=== PATIENT | female | born 1970 | race Caucasian/White ===

== ENCOUNTER → 2018-09-12 10:47 | Outpatient (CLI) | payer OTHER, SELFPAY ==
--- NOTE | 2018-09-12 | DI.MG.S_ITS ---
BILATERAL DIGITAL SCREENING MAMMOGRAM 3D/2D WITH CAD: 09/12/2018 CLINICAL: Routine screening. Comparison is made to exams dated: 03/21/2014 mammogram, 04/04/2012 mammogram, and 03/22/2011 mammogram - [facility]. The tissue of both breasts is heterogeneously dense. This may lower the sensitivity of mammography. Current study was also evaluated with a Computer Aided Detection (CAD) system. No significant masses, calcifications, or other findings are seen in either breast. There has been no significant interval change. IMPRESSION: NEGATIVE There is no mammographic evidence of malignancy. A 1 year screening mammogram is recommended. This exam was interpreted at Station ID: [id number]. NOTE: For mammograms, a report in lay terms will be sent to the patient. Approximately 15% of breast malignancies will not be visualized mammographically. In the management of a palpable breast mass, a negative mammogram must not discourage biopsy of a clinically suspicious lesion. Electronically Signed By: Uma chaves/pina:09/12/2018 17:15:51 letter sent: Normal Exam ACR BI-RADS Category 1: Negative 3341F
== END ==
PROVIDERS: Family Provider Family Medicine; PCP Family Medicine; Visit Provider Family Medicine
DX: Z12.31 Encounter for screening mammogram for malignant neoplasm of breast (principal)
CPT/HCPCS: 77063; 77067

== ENCOUNTER 2020-01-17 11:14 | Emergency (ER) | payer OTHER, SELFPAY ==
[2020-01-17 11:18] VITALS: BP 138/75; PULSE 74; RESP 14; TEMP 37; O2SAT 99
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
[2020-01-17 11:48] LABS: Alanine Aminotransferase 16 IU/L (<35)
[2020-01-17 12:57] LABS: HIV 1 & 2 Ab/Ag 4th Gen Combo NEGATIVE (NEGATIVE); Hep C Virus Ab w/Reflex Quant NEGATIVE s/c (NEGATIVE)
[2020-01-18 03:36] LABS: Hepatitis B Surf Ab Qualitativ Reactive (.)
== END 2020-01-17 11:56 | disposition home or self-care (01) ==
PROVIDERS: Emergency Provider Nurse Practitioner Family; Family Provider Family Medicine; PCP Family Medicine
DX: Z77.21 Contact with and (suspected) exposure to potentially hazardous body fluids (principal); Y99.0 Civilian activity done for income or pay
CPT/HCPCS: 36415; 84460; 86706; 86803; 87389; 99283

== ENCOUNTER → 2020-06-19 12:47 | Outpatient (CLI) | payer OTHER, SELFPAY ==
[2020-06-19] MEDS: COVID-19 VACC(MODERNA-1)/PF 100 MCG/0.5 ML VIAL IM (12:51)
== END ==
PROVIDERS: Family Provider Family Medicine; PCP Family Medicine; Visit Provider Internal Medicine
DX: Z23 Encounter for immunization (principal)
CPT/HCPCS: 0011A; 91301

== ENCOUNTER → 2020-07-17 12:43 | Outpatient (CLI) | payer OTHER, SELFPAY ==
[2020-07-17] MEDS: COVID-19 VACC #2, MRNA(MOD) 100 MCG/0.5 ML VIAL IM (12:50)
== END ==
PROVIDERS: Family Provider Family Medicine; PCP Family Medicine; Visit Provider Internal Medicine
DX: Z23 Encounter for immunization (principal)
CPT/HCPCS: 0012A; 91301

== ENCOUNTER → 2021-04-16 09:17 | Outpatient (CLI) | payer OTHER, SELFPAY ==
[2021-04-16] MEDS: COVID-19 VACC #3, MRNA(MOD) 50 MCG/0.25 ML VIAL IM (09:24)
== END ==
PROVIDERS: Family Provider Family Medicine; PCP Family Medicine; Visit Provider Internal Medicine
DX: Z23 Encounter for immunization (principal)
CPT/HCPCS: 0013A; 91301

== ENCOUNTER → 2021-05-05 14:48 | Outpatient (CLI) | payer OTHER, SELFPAY ==
--- NOTE | 2021-05-05 14:49 | DI.MG.S_ITS ---
BILATERAL DIGITAL SCREENING MAMMOGRAM 3D/2D WITH CAD: 05/05/2021 CLINICAL: Routine screening. Comparison is made to exams dated: 09/12/2018 mammogram and 03/21/2014 mammogram - [facility]. The tissue of both breasts is heterogeneously dense. This may lower the sensitivity of mammography. Current study was also evaluated with a Computer Aided Detection (CAD) system. No significant masses, calcifications, or other findings are seen in either breast. There has been no significant interval change. IMPRESSION: NEGATIVE There is no mammographic evidence of malignancy. A 1 year screening mammogram is recommended. This exam was interpreted at Station ID: [id number]. NOTE: For mammograms, a report in lay terms will be sent to the patient. Approximately 15% of breast malignancies will not be visualized mammographically. In the management of a palpable breast mass, a negative mammogram must not discourage biopsy of a clinically suspicious lesion. Electronically Signed By: Mohsen jaramillo/pina:05/05/2021 15:04:20 letter sent: Normal Exam ACR BI-RADS Category 1: Negative 3341F
== END ==
PROVIDERS: Family Provider Family Medicine; PCP Family Medicine; Referring Provider Family Medicine; Visit Provider Family Medicine
DX: Z12.31 Encounter for screening mammogram for malignant neoplasm of breast (principal)
CPT/HCPCS: 77063; 77067

== ENCOUNTER → 2021-07-14 13:36 | Outpatient (CLI) | payer OTHER, SELFPAY ==
[2021-07-14 15:35] LABS: COVID19 -Nasal RAPID Negative (Negative)
== END ==
PROVIDERS: Family Provider Family Medicine; PCP Family Medicine; Visit Provider Family Medicine Sleep Medicine
DX: Z20.822 Contact with and (suspected) exposure to COVID-19 (principal)
CPT/HCPCS: 87635; C9803

== ENCOUNTER → 2021-07-16 12:26 | Day surgery (SDC) | payer OTHER, SELFPAY ==
--- NOTE | 2021-07-16 | PATH_ITS ---
[facility] Accession Number: [id number] No. of containers..04 Tissue . 01 Material submitted: . PART A: duodenum - DUODENUM PART B: stomach - STOMACH ANTRUM PART C: stomach - STOMACH FUNDUS PART D: stomach - STOMACH BODY . 02 Diagnosis: A. Duodenum, Biopsy: Duodenal mucosa with no diagnostic abnormality. Negative for active inflammation, features of sprue, dysplasia, or malignancy. . B. Stomach, Antrum, Biopsy: Antral mucosa with mild chronic gastritis and intestinal metaplasia. Negative for Helicobacter by immunohistochemistry. Negative for dysplasia and malignancy. . C-D. Stomach, Fundus, Body, Biopsies: Body-type mucosa with mild chronic gastritis. Negative for Helicobacter by immunohistochemistry. Negative for intestinal metaplasia. Negative for dysplasia and malignancy. [facility] 07/21/2021 1233 Local . 02 Electronically signed: . Sona Vee MD, Pathologist NPI- [id number] . 01 Gross description: . Part A: DUODENUM: Received in formalin is 1 fragment(s) of alcantar, soft tissue measuring 0.2 x 0.2 x 0.2 cm submitted entirely in 1 cassette(s) Part B: STOMACH ANTRUM: Received in formalin is 1 fragment(s) of alcantar, soft tissue measuring 0.2 x 0.2 x 0.1 cm submitted entirely in 1 cassette(s) Part C: STOMACH FUNDUS: Received in formalin are 2 fragment(s) of alcantar, soft tissue measuring 0.1 x 0.1 x 0.1 cm to 0.2 x 0.2 x 0.2 cm submitted entirely in 1 cassette(s) Part D: STOMACH BODY: Received in formalin is 1 fragment(s) of alcantar, soft tissue measuring 0.2 x 0.2 x 0.2 cm submitted entirely in 1 cassette(s) /MODE 07/19/2021 2040 [facility] . 02 Microscopic: . B-D: Immunohistochemical stains for Helicobacter were performed on blocks B, C and D in order to evaluate for Helicobacter organisms and are all negative. The control stain showed appropriate reactivity. . * This test was developed and its performance characteristics determined by [facility]. It has not been cleared or approved by the U.S. Food and Drug Administration. The FDA has determined that such clearance or approval is not necessary. This test is used for clinical purposes. It should not be regarded as investigational or for research. . 02 Pathologist provided ICD-10: Z12.11 . 02 CPT . 013522, 254806, 442934, 205878, P82926 Specimen Comment: A courtesy copy of this report has been sent to [phone] Performed at: 01 [facility] [address] [id number] MD Manfred Orr MD Phone: [phone] Performed at: 02 [facility] [id number] [place] [id number] MD Sona Vee MD Phone: [phone]
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
--- NOTE | 2021-07-16 12:13 | PM.OP.EGD ---
Operative Date/Time/Diagnoses Date of procedure: 07/16/21 Procedure Notes SCOAP/Timeout: 1:39 p.m. Procedure in detail: ENDOSCOPIST: Priyanka Dowling MD Sedation RN: Fatoumata Verde RN Sedation start time: 1:40 p.m. Sedation end time: 1:54 p.m. PROCEDURE: EGD with biopsy REFERRING PROVIDER: Dr. Srivastava INDICATIONS: 1. Microcytic anemia MEDICATION: Incremental doses of Versed and fentanyl until an appropriate level of sedation was achieved. ASA Ratin DURATION OF PROCEDURE: 14 minutes. COMPLICATIONS: None. LIMITATIONS: None EXTENT OF PROCEDURE: Third portion of the Duodenum. PROCEDURE: The high-definition gastroduodenoscope was introduced into the posterior oropharynx under direct vision after Hurricaine spray, noted IV sedation, and proper informed consent. The esophagus was identified and intubated under direct visualization. The scope was quickly passed through the esophagus and into the fundus of the stomach. A clear fundal pool was aspirated. The scope was then advanced to the antrum and the pylorus was identified. The scope was passed through the pylorus into the second and third portions of the duodenum. Superficial hyperemesis was noted noted in the duodenal bulb and targeted biopsies taken x2. The antrum had mild antritis, targeted biopsy taken x2. J maneuver was produced. No abnormalities were noted of the proximal body, fundus or cardia, random biopsy taken x1 A small hiatal hernia was noted. Scope was broken out of the J maneuver and the remainder of the stomach was carefully inspected upon withdrawal and was normal. The stomach was carefully deflated of all air on withdrawal. The distal esophagus was carefully inspected and no abnormalities were seen. The remainder of the esophagus was normal upon withdrawal. The larynx and vocal cords appeared to be unremarkable. IMPRESSION: 1. Duodenitis 2. Antritis 3. Small hiatal hernia PLAN: 1. Follow-up in clinic status post pathology results. The possibility of missed lesion including a malignancy was discussed prior with the patient. Potential alarm symptoms have been discussed and should be reported by the patient immediately.
--- NOTE | 2021-07-16 12:13 | PM.OP.COLON ---
Operative Date/Time/Diagnoses Date of procedure: 07/16/21 Procedure Notes Procedure in detail: ENDOSCOPIST: Priyanka Dowling MD Sedation RN: Fatoumata Verde RN Sedation start time: 1:55 p.m. Sedation end time: 2:18 p.m. PROCEDURE: Sigmoidoscopy, flexible INDICATIONS: 1. Microcytic anemia 2. Screening for colon cancer MEDICATION: Levsin 0.125 mg sublingual, incremental doses of Versed and fentanyl until appropriate level sedation achieved. ASA CLASS: 2 COMPLICATIONS: None. EXTENT OF PROCEDURE: Cecum. QUALITY OF PREP: Good with portions of liquid stool. PROCEDURE: Prior to insertion of the colonoscope, a digital rectal examination was accomplished with circumferential palpation of the distal rectal mucosa without significant findings being noted. The high-definition pediatric colonoscope was passed into the rectum in the usual fashion and advanced over to 40 cm without difficulty. At that point, there was a very tight turn at the presumed splenic flexure and despite position changes to the supine position, right lateral decubitus position, back to the supine position and left lateral decubitus positions, the colon did not open up and further intubation was not possible. There was a diverticula at that junction that increased risk for perforation with any scope maneuvering and decision was made to convert procedure from a colonoscopy to flexible sigmoidoscopy. The scope was then withdrawn and the remainder of the descending and sigmoid colon were normal upon withdrawal except for a few scattered diverticula that were not inflamed. No polyps noted. The rectum was normal. J maneuver was produced. There was no significant perianal disease. The J maneuver was broken. The remainder of the rectum was inspected and there minor external hemorrhoid disease and a few anal papillae. The scope was withdrawn. IMPRESSION: 1. Normal sigmoidoscopy 2. Diverticulosis, minor 3. External hemorrhoids, nonthrombosed, mild PLAN: 1. No evidence of bleeding could be found in the sigmoid colon to explain patient's microcytic anemia. Secondary to incomplete colonoscopy, recommend CT colonography and possibly repeat colonoscopy at referral center. The possibility of a missed lesion including a malignancy has been discussed with the patient previously. Potential alarm symptoms have been discussed and should be reported immediately.
[2021-07-16] MEDS: HYOSCYAMINE 0.125 MG TABLET PO (13:05)
[2021-07-16 13:11] VITALS: BP 108/72; PULSE 80; RESP 12; TEMP 36.8; O2SAT 99; BMI 22.3
[2021-07-16] MEDS: MIDAZOLAM 5 MG/5 ML VIAL IV (14:21)
[2021-07-16] MEDS: fentaNYL 250 MCG/5 ML INJ IV (14:21)
[2021-07-16] MEDS: LIDOCAINE 4% SOLN 50 ML 20 ML TOP (14:22)
[2021-07-16 14:25] VITALS: BP 113/71; PULSE 67; RESP 16; TEMP 36.2; O2SAT 95
[2021-07-16 14:30] VITALS: BP 106/68; PULSE 70; RESP 13; O2SAT 95
[2021-07-16 14:40] VITALS: BP 110/72; PULSE 80; RESP 16; TEMP 36.8; O2SAT 100
[2021-07-16 14:50] VITALS: BP 105/69; PULSE 66; RESP 16; O2SAT 100
[2021-07-16 15:00] VITALS: BP 110/60; PULSE 60; RESP 16; TEMP 36.2; O2SAT 100
== END | disposition home or self-care (01) ==
PROVIDERS: Family Provider Family Medicine; PCP Family Medicine; Referring Provider Student in an Organized Health Care Education/Training Program; Visit Provider Student in an Organized Health Care Education/Training Program
PROC: 0DJ08ZZ Inspection of Upper Intestinal Tract, Via Natural or Artificial Opening Endoscopic (ICD-10-PCS; CPT 43235; principal; 2021-07-16 13:45)
PROC: 0DJD8ZZ Inspection of Lower Intestinal Tract, Via Natural or Artificial Opening Endoscopic (ICD-10-PCS; CPT 45378; 2021-07-16 13:45)
DX: Z12.11 Encounter for screening for malignant neoplasm of colon (principal); D50.9 Iron deficiency anemia, unspecified; K44.9 Diaphragmatic hernia without obstruction or gangrene; K29.80 Duodenitis without bleeding; K29.60 Other gastritis without bleeding; K57.30 Diverticulosis of large intestine without perforation or abscess without bleeding; K64.4 Residual hemorrhoidal skin tags
CPT/HCPCS: 43239; 45330; J2250; J3010

== ENCOUNTER → 2022-05-25 15:16 | Outpatient (CLI) | payer OTHER, SELFPAY ==
--- NOTE | 2022-05-25 15:18 | DI.MRI.S_ITS ---
PROCEDURE: MR SHOULDER LT WO CON INDICATIONS: Other soft tissue disorders related to use TECHNIQUE: Noncontrast oblique coronal T2 fast spin echo with fat saturation, oblique sagittal T1 spin echo and T2 fast spin echo with fat saturation, axial T1 spin echo and T2 fast spin echo with fat saturation through the shoulder. COMPARISON: [facility], MR, SHOULDER WITHOUT CONTRAST, 11/05/2014, 8:20. FINDINGS: Image quality: Excellent. Rotator cuff: There is decreased, minimal, low-grade partial-thickness bursal surface tearing of the mid supraspinatus tendon. Decreased, minimal bursal surface and articular surface tearing of the mid and anterior infraspinatus tendon at the humeral insertion site. Decreased, low-grade articular surface tearing of the upper subscapularis tendon at the humeral insertion site. Teres minor is intact. No rotator cuff atrophy. Bones and bursae: No bone marrow contusions or fractures. Moderate glenohumeral and mild acromioclavicular joint degeneration. The acromion demonstrates conventional anatomy, without an os acromiale. No pathologic subacromial-subdeltoid or subcoracoid bursal fluid is present. Capsule and soft tissues: Diffuse fraying of the glenoid labrum is present, with focal undercutting posteriorly inferiorly. The long head of the biceps tendon demonstrates normal location and morphology. The rotator interval appears normal, without fibrosis. The coracohumeral ligament is normal in thickness. IMPRESSION: 1. Decreased, low-grade tearing of the subscapularis, supraspinatus, and infraspinatus tendons. No full-thickness rotator cuff tear. 2. Acromioclavicular and glenohumeral joint osteoarthritis. 3. No significant change in glenoid labral tearing. Dictated by: Russ Teresa M.D. on 05/25/2022 at 16:16 Approved by: Russ Teresa M.D. on 05/25/2022 at 16:18
== END ==
PROVIDERS: Family Provider Family Medicine; PCP Family Medicine; Referring Provider Family Medicine; Visit Provider Family Medicine
DX: M75.112 Incomplete rotator cuff tear or rupture of left shoulder, not specified as traumatic (principal); M19.012 Primary osteoarthritis, left shoulder; M70.8 Other soft tissue disorders related to use, overuse and pressure
CPT/HCPCS: 73221

== ENCOUNTER → 2022-07-12 11:26 | Outpatient (CLI) | payer OTHER, SELFPAY ==
[2022-07-15 08:36] LABS: Gastric Parietal Cell AB 1.1 Units (0.0-20.0)
[2022-07-15 10:34] LABS: Intrinsic Factor Blocking Aby 0.9 AU/mL (0.0-1.1)
== END ==
PROVIDERS: Family Provider Family Medicine; PCP Family Medicine; Referring Provider Family Medicine; Visit Provider Family Medicine
DX: D50.9 Iron deficiency anemia, unspecified (principal)
CPT/HCPCS: 36415; 83516; 86340

== ENCOUNTER 2022-07-29 15:15 | Outpatient (RCR) | payer OTHER, SELFPAY ==
--- NOTE | 2022-07-04 17:50 | PT.OIE ---
Current Diagnoses Pain in left shoulder (07/04/22) Unspecified rotator cuff tear or rupture of left shoulder, not specified as traumatic (07/04/22) Past Medical History (Last Updated 07/15/21 @ 16:13 by Maria Del Carmen Chvaez RN) Allergic rhinitis Eczema Microcytic anemia Rotator cuff syndrome of left shoulder Scoliosis Past Surgical History (Last Updated 07/15/21 @ 16:16 by Maria Del Carmen Chavez RN) History of mandibular surgery History of tonsillectomy S/P rotator cuff repair Visit Care Team Role Provider Type Ana Srivastava MD Attending Provider Physician Family Provider Primary Care Provider Referring Provider Specialty: [facility] Practice Address: [address] [place] [address], [facility] Email: [email or web address] [facility] Initial Evaluation PT-OP-A Visit Information Start: 07/04/22 14:36 Freq: Status: Active Protocol: Document 07/04/22 09:45 DCW (Rec: 07/04/22 14:40 DCW [id number]) Out-Patient Physical Therapy Visit Information Visit Information Visit Type Initial Evaluation Visit Start Time 09:45 Visit Stop Time 10:20 Total Visit Minutes 35 Visit Number 1 Number of MACHINE 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 Pt reports she underwent a rotator cuff repair in 2006 on her left side. Notes that during surgery, it wasn't as bad as they expected, so they just cleaned it up a bit. 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 The initial pain only lasted 30 seconds, but it has been a dull ache fairly constantly since then, although it has slowly been getting better. Because of her rotator cuff tear history, pt felt this was a very similar pain, and after waiting a bit hoping it would go away, she saw her PCP, who referred her to PT, ortho, and an MRI. Pt has already had the MRI and seen ortho, who also recommended PT. MRI showed multiple low-grade tears in her left supraspinatus, infraspinatus, and subscapularis. Pt has pain with specific activities like reaching behind her back, donning/doffing a shirt or jacket, crossing midline on the steering wheel while driving, and pushing-pulling activities. Prior Treatments and Tests Shoulder MRI: IMPRESSION: 1. Decreased, low-grade tearing of the subscapularis, supraspinatus, and infraspinatus tendons. No full-thickness rotator cuff tear. 2. Acromioclavicular and glenohumeral joint osteoarthritis. 3. No significant change in glenoid labral tearing. per Russ Teresa M.D. on 05/25/2022 Treatment Goals Patient/Caregiver Goals Decrease pain and compensatory movements. PT-OP-C Subjective Start: 07/04/22 14:36 Freq: Status: Active Protocol: Document 07/04/22 09:45 DCW (Rec: 07/04/22 14:40 DCW [id number]) OP-PT Subjective Patient Comments Patient Comments Since I've alreadt been through the surgery once, I am really hoping that I got in here to PT early enough that I can avoid it this time. Patient Reported Progress Improving Patient Questionnaires Quick Dash- Upper Extremity Quick Dash UE Score 18.18% Quick Dash UE Impairment 1 to 19% Impaired (Score 1-19) PT-OP-E Functional Tests Start: 07/04/22 14:36 Freq: Status: Active Protocol: Document 07/04/22 09:45 DCW (Rec: 07/04/22 14:55 DCW [id number]) Functional Tests Apley's Scratch Test Action 1- Left Anterior opposite shoulder, pain Action 1- Right Posterior opposite shoulder Action 2- Left T4 Action 2- Right T4 Action 3- Left T6 Action 3- Right T2 PT-OP-F Manual Assessment Start: 07/04/22 14:36 Freq: Status: Active Protocol: Document 07/04/22 09:45 DCW (Rec: 07/04/22 14:55 DCW [id number]) Manual Assessments Soft Tissue Assessment Soft Tissue Mobility Assessment Moderate tone in L parascapulars, B rhomboids, and B thoracic paraspinals. Joint Mobility Assessment Joint Mobility Assessment Good overall joint mobility with PROM, no noticeable deficits PT-OP-K Range of Motion Start: 07/04/22 14:36 Freq: Status: Active Protocol: Document 07/04/22 09:45 DCW (Rec: 07/04/22 14:55 DCW [id number]) Shoulder Goniometric Range of Motion Shoulder Right Active Testing Position Sitting Flexion 180 Abduction 180 Horizontal Adduction 35 External Rotation at 0 degrees Abduction 75 Internal Rotation Behind Back (text) T2 Left Active Testing Position Sitting Flexion 180 Abduction 180 Horizontal Adduction 15 External Rotation at 0 degrees Abduction 65 Internal Rotation Behind Back (text) T6 PT-OP-L Special Tests Start: 07/04/22 14:36 Freq: Status: Active Protocol: Document 07/04/22 09:45 DCW (Rec: 07/04/22 14:55 DCW [id number]) Special Tests Shoulder Special Tests Passive ER Rotator Cuff Test Results Negative Lift-Off Rotator Cuff Test Results Negative Chatterjee Edgar Impingement Test Results Negative Grind Labrum Test Results Negative Empty Can Test Results Positive left Drop Arm Rotator Cuff Test Results Negative Clunk Test Test Results Negative Belly Press Test Results Mild pain noted left Apprehension Test Test Results Negative Anterior Draw Test Results Negative AC Joint Compression Test Results Negative PT-OP-M Strength Start: 07/04/22 14:36 Freq: Status: Active Protocol: Document 07/04/22 09:45 DCW (Rec: 07/04/22 14:55 DCW [id number]) Shoulder Strength Shoulder Manual Muscle Testing Right Flexion 5 Normal Abduction (C5) 5 Normal External Rotation 5 Normal Internal Rotation 5 Normal Comments Scaption 5/5 Left Flexion 4 Good Abduction (C5) 5 Normal External Rotation 5 Normal Internal Rotation 4+ Good+ Comments Scaption 4/5 PT-OP-Q Treatments Start: 07/04/22 14:36 Freq: Status: Active Protocol: Document 07/04/22 09:45 DCW (Rec: 07/04/22 14:41 DCW [id number]) Therapeutic Exercises Standing Exercises Rows Standing Exercise Name Rows Side bilateral Resistance Lv 3 Adduction Standing Exercise Name Shoulder Adduction Side left Resistance Lv 3 Extension Standing Exercise Name Shoulder Extension Side bilateral Resistance Lv 3 PT-OP-T Assessment and Plan Start: 07/04/22 14:36 Freq: Status: Active Protocol: Document 07/04/22 09:45 DCW (Rec: 07/04/22 17:48 DCW [id number]) Physical Therapy Assessment Rehab Potential Rehabilitation Potential Good Evaluation Complexity Number of Personal Factors/Comorbidities 1-2 Number of Body Systems Impaired 1-2 Clinical Presentation at Evaluation Stable Impairments Impairments Activity Tolerance,Functional Activities,Functional Mobility ,Pain,Soft Tissue Mobility, Strength,Tone Goals Two Impairment Pt experiences shoulder pain during don/doff of jacket Chain Saw Operator Goal (LTG) Pt to improve ability to reach behind her back in order to don/doff jacket without pain 100% of the time LTG Duration 08/30/22 One Impairment Pt does not have an appropriate home exercise program Short Term Goal (STG) Pt to be independent and compliant with an appropriate HEP STG Duration 08/02/22 Assessment Summary Assessment Pt presents with signs and symptoms consistent with referring diagnosis. Pt has multiple locations of low- grade rotator cuff tears, approximately 12 years s/p prior rotator cuff repair and clean up. 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 Pt should benefit from skilled therapy focusing on improving shoulder strength and stabilization. Pt will likely progress quickly with an independent HEP. Physical Therapy Plan Frequency and Duration Frequency of Treatment 1-2x/week Plan of Care Start Date 07/04/22 Plan of Care End Date 09/01/22 Therapeutic Interventions Therapeutic Interventions Home Exercise Program,Joint Mobilizations,Manual Therapy, Patient/Caregiver Education, Self-Care/Home Management,Soft Tissue Mobilization, Therapeutic Activities, Therapeutic Exercises Next Visit Focus/Plan Next Note Type Treatment Note Next Visit Plan Shoulder strengthening, STM, joint mobilization
--- NOTE | 2022-07-04 17:50 | PT.OPPOC ---
Physical, Occupational & Speech Therapy At [facility] Current Diagnoses Pain in left shoulder (07/04/22) Unspecified rotator cuff tear or rupture of left shoulder, not specified as traumatic (07/04/22) Visit Care Team Role Provider Type Ana Srivastava MD Attending Provider Physician Family Provider Primary Care Provider Referring Provider Specialty: Family Practice Address: [address] [place] [address], [facility] [place], [place], [facility] Email: Plan Of Care PT-OP-T Assessment and Plan Start: 07/04/22 14:36 Freq: Status: Active Protocol: Document 07/04/22 09:45 DCW (Rec: 07/04/22 17:48 DCW [id number]) Physical Therapy Assessment Rehab Potential Rehabilitation Potential Good Evaluation Complexity Number of Personal Factors/Comorbidities 1-2 Number of Body Systems Impaired 1-2 Clinical Presentation at Evaluation Stable Impairments Impairments Activity Tolerance,Functional Activities,Functional Mobility ,Pain,Soft Tissue Mobility, Strength,Tone Goals Two Impairment Pt experiences shoulder pain during don/doff of jacket Group Home Goal (LTG) Pt to improve ability to reach behind her back in order to don/doff jacket without pain 100% of the time LTG Duration 08/30/22 One Impairment Pt does not have an appropriate home exercise program Short Term Goal (STG) Pt to be independent and compliant with an appropriate HEP STG Duration 08/02/22 Assessment Summary Assessment Pt presents with signs and symptoms consistent with referring diagnosis. Pt has multiple locations of low- grade rotator cuff tears, approximately 12 years s/p prior rotator cuff repair and clean up. 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 Pt should benefit from skilled therapy focusing on improving shoulder strength and stabilization. Pt will likely progress quickly with an independent HEP. Physical Therapy Plan Frequency and Duration Frequency of Treatment 1-2x/week Plan of Care Start Date 07/04/22 Plan of Care End Date 09/01/22 Therapeutic Interventions Therapeutic Interventions Home Exercise Program,Joint Mobilizations,Manual Therapy, Patient/Caregiver Education, Self-Care/Home Management,Soft Tissue Mobilization, Therapeutic Activities, Therapeutic Exercises Next Visit Focus/Plan Next Note Type Treatment Note Next Visit Plan Shoulder strengthening, STM, joint mobilization Plan of Care Dates Plan of Care Start Date 07/04/22 Plan of Care End Date 09/01/22 Electronically Signed by: Keagan Hunt, PT 07/04/22 5810 If you are in agreement with this Plan of Care, please return a signed and dated copy. I have reviewed this Plan of Care and certify that the skilled therapy services above are required to meet the patient?s needs. Physician Signature Date Printed Name and Credentials Clinical Instructor Signature Printed Name and Credentials
--- NOTE | 2022-07-06 17:36 | PT.OTN ---
Current Diagnoses Pain in left shoulder (07/06/22) Unspecified rotator cuff tear or rupture of left shoulder, not specified as traumatic (07/06/22) Physical Therapy Treatment Note PT-OP-A Visit Information Start: 07/04/22 14:36 Freq: Status: Active Protocol: Document 07/06/22 16:45 DCW (Rec: 07/06/22 17:36 DCW [id number]) Out-Patient Physical Therapy Visit Information Visit Information Visit Type Treatment Note Visit Start Time 16:45 Visit Stop Time 17:30 Total Visit Minutes 45 Visit Number 2 Number of POWER PLANT ENGINEER Visits 0 Evaluation Information Evaluation Date 07/04/22 PT-OP-B Current Condition Start: 07/04/22 14:36 Freq: Status: Active Protocol: Document 07/04/22 09:45 DCW (Rec: 07/04/22 15:10 DCW [id number]) Current Condition History of Current Condition Onset Date Four month history Current Complaints Left shoulder pain with certain motions, multiple low- grade R/C tears History of Current Condition Pt is a 51 year old female presenting to skilled therapy with a four month history of left shoulder pain. Pt reports she underwent a rotator cuff repair in 2006 on her left side. Notes that during surgery, it wasn't as bad as they expected, so they just cleaned it up a bit. 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 The initial pain only lasted 30 seconds, but it has been a dull ache fairly constantly since then, although it has slowly been getting better. Because of her rotator cuff tear history, pt felt this was a very similar pain, and after waiting a bit hoping it would go away, she saw her PCP, who referred her to PT, ortho, and an MRI. Pt has already had the MRI and seen ortho, who also recommended PT. MRI showed multiple low-grade tears in her left supraspinatus, infraspinatus, and subscapularis. Pt has pain with specific activities like reaching behind her back, donning/doffing a shirt or jacket, crossing midline on the steering wheel while driving, and pushing-pulling activities. Prior Treatments and Tests Shoulder MRI: IMPRESSION: 1. Decreased, low-grade tearing of the subscapularis, supraspinatus, and infraspinatus tendons. No full-thickness rotator cuff tear. 2. Acromioclavicular and glenohumeral joint osteoarthritis. 3. No significant change in glenoid labral tearing. per Russ Teresa M.D. on 05/25/2022 Treatment Goals Patient/Caregiver Goals Decrease pain and compensatory movements. 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 Reports her shoulder is doing alright at the moment, but, since she has just woken up, has not really done much with it yet. PT-OP-E Functional Tests Start: 07/04/22 14:36 Freq: Status: Active Protocol: Document 07/04/22 09:45 DCW (Rec: 07/04/22 14:55 DCW [id number]) Functional Tests Apley's Scratch Test Action 1- Left Anterior opposite shoulder, pain Action 1- Right Posterior opposite shoulder Action 2- Left T4 Action 2- Right T4 Action 3- Left T6 Action 3- Right T2 PT-OP-F Manual Assessment Start: 07/04/22 14:36 Freq: Status: Active Protocol: Document 07/04/22 09:45 DCW (Rec: 07/04/22 14:55 DCW [id number]) Manual Assessments Soft Tissue Assessment Soft Tissue Mobility Assessment Moderate tone in L parascapulars, B rhomboids, and B thoracic paraspinals. Joint Mobility Assessment Joint Mobility Assessment Good overall joint mobility with PROM, no noticeable deficits PT-OP-K Range of Motion Start: 07/04/22 14:36 Freq: Status: Active Protocol: Document 07/04/22 09:45 DCW (Rec: 07/04/22 14:55 DCW [id number]) Shoulder Goniometric Range of Motion Shoulder Right Active Testing Position Sitting Flexion 180 Abduction 180 Horizontal Adduction 35 External Rotation at 0 degrees Abduction 75 Internal Rotation Behind Back (text) T2 Left Active Testing Position Sitting Flexion 180 Abduction 180 Horizontal Adduction 15 External Rotation at 0 degrees Abduction 65 Internal Rotation Behind Back (text) T6 PT-OP-L Special Tests Start: 07/04/22 14:36 Freq: Status: Active Protocol: Document 07/04/22 09:45 DCW (Rec: 07/04/22 14:55 DCW [id number]) Special Tests Shoulder Special Tests Passive ER Rotator Cuff Test Results Negative Lift-Off Rotator Cuff Test Results Negative Chatterjee Edgar Impingement Test Results Negative Grind Labrum Test Results Negative Empty Can Test Results Positive left Drop Arm Rotator Cuff Test Results Negative Clunk Test Test Results Negative Belly Press Test Results Mild pain noted left Apprehension Test Test Results Negative Anterior Draw Test Results Negative AC Joint Compression Test Results Negative PT-OP-M Strength Start: 07/04/22 14:36 Freq: Status: Active Protocol: Document 07/04/22 09:45 DCW (Rec: 07/04/22 14:55 DCW [id number]) Shoulder Strength Shoulder Manual Muscle Testing Right Flexion 5 Normal Abduction (C5) 5 Normal External Rotation 5 Normal Internal Rotation 5 Normal Comments Scaption 5/5 Left Flexion 4 Good Abduction (C5) 5 Normal External Rotation 5 Normal Internal Rotation 4+ Good+ Comments Scaption 4/5 PT-OP-Q Treatments Start: 07/04/22 14:36 Freq: Status: Active Protocol: Document 07/06/22 16:45 DCW (Rec: 07/06/22 17:36 DCW [id number]) Cardio Equipment Upper Body Ergometer (UBE) Duration (Minutes) 5 RPM 60 Seat Position 10 Height 3.5 Gym Equipment Therapeutic Ball I's, Y's, T's Exercise Details Prone I's, Y's, T's Ball Size/Color Green - 65 cm 3# DB Body Position Prone Reps/Duration x20 each Therapeutic Exercises Supine Exercises Horizontal Adduction Supine Exercise Name Horizontal Adduction Side bilateral Resistance 3# Serratus punch Supine Exercise Name Serratus punch Side bilateral Resistance 3# Sidelying Exercises Internal Rotation Sidelying Exercise Name Sleeper Stretch Side left External Rotation Sidelying Exercise Name ER Side left Resistance 3# Standing Exercises Wall Push-ups Standing Exercise Name Push-up+, W hand position Manual Therapy Treatment Soft Tissue Mobilization R/C Body Location Supraspinatus, Infraspinatus Mobilization Type Sustained Pressure,Trigger Point Release Joint Mobilizations GH Joint L GH Direction Inferior, posterior Grade III Body Position Supine PT-OP-T Assessment and Plan Start: 07/04/22 14:36 Freq: Status: Active Protocol: Document 07/06/22 16:45 DCW (Rec: 07/06/22 17:36 DCW [id number]) Physical Therapy Assessment Impairments Impairments Activity Tolerance,Functional Activities,Functional Mobility ,Pain,Soft Tissue Mobility, Strength,Tone Goals Two Impairment Pt experiences shoulder pain during don/doff of jacket Banana Handler Goal (LTG) Pt to improve ability to reach behind her back in order to don/doff jacket without pain 100% of the time LTG Duration 08/30/22 One Impairment Pt does not have an appropriate home exercise program Short Term Goal (STG) Pt to be independent and compliant with an appropriate HEP STG Duration 08/02/22 Assessment Summary Assessment Pt tolerated treatment well, has been through rotator cuff injuries previously, so is familiar with shoulder TherEx and motivated to attempt to decrease need of surgical intervention. Demonstrates good knowledge of HEP. Physical Therapy Plan Frequency and Duration Frequency of Treatment 1-2x/week Plan of Care Start Date 07/04/22 Plan of Care End Date 09/01/22 Therapeutic Interventions Therapeutic Interventions Home Exercise Program,Joint Mobilizations,Manual Therapy, Patient/Caregiver Education, Self-Care/Home Management,Soft Tissue Mobilization, Therapeutic Activities, Therapeutic Exercises Next Visit Focus/Plan Next Note Type Treatment Note Next Visit Plan Shoulder strengthening, STM, joint mobilization
--- NOTE | 2022-07-12 12:45 | PT.OTN ---
Current Diagnoses Pain in left shoulder (07/12/22) Unspecified rotator cuff tear or rupture of left shoulder, not specified as traumatic (07/12/22) Physical Therapy Treatment Note PT-OP-A Visit Information Start: 07/04/22 14:36 Freq: Status: Active Protocol: Document 07/12/22 12:00 DCW (Rec: 07/12/22 12:45 DCW [id number]) Out-Patient Physical Therapy Visit Information Visit Information Visit Start Time 12:00 Visit Stop Time 12:45 Visit Number 3 PT-OP-B Current Condition Start: 07/04/22 14:36 Freq: Status: Active Protocol: Document 07/04/22 09:45 DCW (Rec: 07/04/22 15:10 DCW [id number]) Current Condition History of Current Condition Onset Date Four month history Current Complaints Left shoulder pain with certain motions, multiple low- grade R/C tears History of Current Condition Pt is a 51 year old female presenting to skilled therapy with a four month history of left shoulder pain. Pt reports she underwent a rotator cuff repair in 2006 on her left side. Notes that during surgery, it wasn't as bad as they expected, so they just cleaned it up a bit. 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 The initial pain only lasted 30 seconds, but it has been a dull ache fairly constantly since then, although it has slowly been getting better. Because of her rotator cuff tear history, pt felt this was a very similar pain, and after waiting a bit hoping it would go away, she saw her PCP, who referred her to PT, ortho, and an MRI. Pt has already had the MRI and seen ortho, who also recommended PT. MRI showed multiple low-grade tears in her left supraspinatus, infraspinatus, and subscapularis. Pt has pain with specific activities like reaching behind her back, donning/doffing a shirt or jacket, crossing midline on the steering wheel while driving, and pushing-pulling activities. Prior Treatments and Tests Shoulder MRI: IMPRESSION: 1. Decreased, low-grade tearing of the subscapularis, supraspinatus, and infraspinatus tendons. No full-thickness rotator cuff tear. 2. Acromioclavicular and glenohumeral joint osteoarthritis. 3. No significant change in glenoid labral tearing. per Russ Teresa M.D. on 05/25/2022 Treatment Goals Patient/Caregiver Goals Decrease pain and compensatory movements. PT-OP-C Subjective Start: 07/04/22 14:36 Freq: Status: Active Protocol: Document 07/12/22 12:00 DCW (Rec: 07/12/22 12:45 DCW [id number]) OP-PT Subjective Patient Comments Patient Comments Pt admits she had a little bit of increased sharp pain when attempting to do her HEP for a day following her last appointment, but then it went away. PT-OP-E Functional Tests Start: 07/04/22 14:36 Freq: Status: Active Protocol: Document 07/04/22 09:45 DCW (Rec: 07/04/22 14:55 DCW [id number]) Functional Tests Apley's Scratch Test Action 1- Left Anterior opposite shoulder, pain Action 1- Right Posterior opposite shoulder Action 2- Left T4 Action 2- Right T4 Action 3- Left T6 Action 3- Right T2 PT-OP-F Manual Assessment Start: 07/04/22 14:36 Freq: Status: Active Protocol: Document 07/04/22 09:45 DCW (Rec: 07/04/22 14:55 DCW [id number]) Manual Assessments Soft Tissue Assessment Soft Tissue Mobility Assessment Moderate tone in L parascapulars, B rhomboids, and B thoracic paraspinals. Joint Mobility Assessment Joint Mobility Assessment Good overall joint mobility with PROM, no noticeable deficits PT-OP-K Range of Motion Start: 07/04/22 14:36 Freq: Status: Active Protocol: Document 07/04/22 09:45 DCW (Rec: 07/04/22 14:55 DCW [id number]) Shoulder Goniometric Range of Motion Shoulder Right Active Testing Position Sitting Flexion 180 Abduction 180 Horizontal Adduction 35 External Rotation at 0 degrees Abduction 75 Internal Rotation Behind Back (text) T2 Left Active Testing Position Sitting Flexion 180 Abduction 180 Horizontal Adduction 15 External Rotation at 0 degrees Abduction 65 Internal Rotation Behind Back (text) T6 PT-OP-L Special Tests Start: 07/04/22 14:36 Freq: Status: Active Protocol: Document 07/04/22 09:45 DCW (Rec: 07/04/22 14:55 [facility] [id number]) Special Tests Shoulder Special Tests Passive ER Rotator Cuff Test Results Negative Lift-Off Rotator Cuff Test Results Negative Chatterjee Edgar Impingement Test Results Negative Grind Labrum Test Results Negative Empty Can Test Results Positive left Drop Arm Rotator Cuff Test Results Negative Clunk Test Test Results Negative Belly Press Test Results Mild pain noted left Apprehension Test Test Results Negative Anterior Draw Test Results Negative AC Joint Compression Test Results Negative PT-OP-M Strength Start: 07/04/22 14:36 Freq: Status: Active Protocol: Document 07/04/22 09:45 DCW (Rec: 07/04/22 14:55 [facility] [id number]) Shoulder Strength Shoulder Manual Muscle Testing Right Flexion 5 Normal Abduction (C5) 5 Normal External Rotation 5 Normal Internal Rotation 5 Normal Comments Scaption 5/5 Left Flexion 4 Good Abduction (C5) 5 Normal External Rotation 5 Normal Internal Rotation 4+ Good+ Comments Scaption 4/5 PT-OP-Q Treatments Start: 07/04/22 14:36 Freq: Status: Active Protocol: Document 07/12/22 12:00 DCW (Rec: 07/12/22 12:45 [facility] [id number]) Cardio Equipment Upper Body Ergometer (UBE) Duration (Minutes) 7 RPM 60 Seat Position 10 Height 3.5 Gym Equipment Therapeutic Ball I's, Y's, T's Exercise Details Prone I's, Y's, T's Ball Size/Color Green - 65 cm 3# DB Body Position Prone Reps/Duration x20 each Manual Therapy Treatment Soft Tissue Mobilization R/C Body Location Supraspinatus, Infraspinatus Mobilization Type Sustained Pressure,Trigger Point Release Joint Mobilizations GH Joint L GH Direction Inferior, posterior Grade III Body Position Supine PT-OP-T Assessment and Plan Start: 07/04/22 14:36 Freq: Status: Active Protocol: Document 07/12/22 12:00 DCW (Rec: 07/12/22 12:45 [facility] [id number]) Physical Therapy Assessment Impairments Impairments Activity Tolerance,Functional Activities,Functional Mobility ,Pain,Soft Tissue Mobility, Strength,Tone Goals Two Impairment Pt experiences shoulder pain during don/doff of jacket Olive Grader Goal (LTG) Pt to improve ability to reach behind her back in order to don/doff jacket without pain 100% of the time LTG Duration 08/30/22 One Impairment Pt does not have an appropriate home exercise program Short Term Goal (STG) Pt to be independent and compliant with an appropriate HEP STG Duration 08/02/22 Assessment Summary Assessment Focused more on STM and joint mobilization today due to increased pain following last visit. Pt feeling better overall, scheduled for Dr Pathak visit coming up for RCT replacement. Physical Therapy Plan Frequency and Duration Frequency of Treatment 1-2x/week Plan of Care Start Date 07/04/22 Plan of Care End Date 09/01/22 Therapeutic Interventions Therapeutic Interventions Home Exercise Program,Joint Mobilizations,Manual Therapy, Patient/Caregiver Education, Self-Care/Home Management,Soft Tissue Mobilization, Therapeutic Activities, Therapeutic Exercises Next Visit Focus/Plan Next Note Type Treatment Note Next Visit Plan Shoulder strengthening, STM, joint mobilization
--- NOTE | 2022-07-14 16:45 | PT.OTN ---
Current Diagnoses Pain in left shoulder (07/14/22) Unspecified rotator cuff tear or rupture of left shoulder, not specified as traumatic (07/14/22) Physical Therapy Treatment Note PT-OP-A Visit Information Start: 07/04/22 14:36 Freq: Status: Active Protocol: Document 07/14/22 16:00 DCW (Rec: 07/14/22 16:45 DCW [id number]) Out-Patient Physical Therapy Visit Information Visit Information Visit Type Treatment Note Visit Start Time 16:00 Visit Stop Time 16:45 Total Visit Minutes 45 Visit Number 4 Number of [employer]IP[employer] BOARDS Visits 0 Evaluation Information Evaluation Date 07/04/22 PT-OP-B Current Condition Start: 07/04/22 14:36 Freq: Status: Active Protocol: Document 07/04/22 09:45 DCW (Rec: 07/04/22 15:10 DCW [id number]) Current Condition History of Current Condition Onset Date Four month history Current Complaints Left shoulder pain with certain motions, multiple low- grade R/C tears History of Current Condition Pt is a 51 year old female presenting to skilled therapy with a four month history of left shoulder pain. Pt reports she underwent a rotator cuff repair in 2006 on her left side. Notes that during surgery, it wasn't as bad as they expected, so they just cleaned it up a bit. 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 The initial pain only lasted 30 seconds, but it has been a dull ache fairly constantly since then, although it has slowly been getting better. Because of her rotator cuff tear history, pt felt this was a very similar pain, and after waiting a bit hoping it would go away, she saw her PCP, who referred her to PT, ortho, and an MRI. Pt has already had the MRI and seen ortho, who also recommended PT. MRI showed multiple low-grade tears in her left supraspinatus, infraspinatus, and subscapularis. Pt has pain with specific activities like reaching behind her back, donning/doffing a shirt or jacket, crossing midline on the steering wheel while driving, and pushing-pulling activities. Prior Treatments and Tests Shoulder MRI: IMPRESSION: 1. Decreased, low-grade tearing of the subscapularis, supraspinatus, and infraspinatus tendons. No full-thickness rotator cuff tear. 2. Acromioclavicular and glenohumeral joint osteoarthritis. 3. No significant change in glenoid labral tearing. per Russ Teresa M.D. on 05/25/2022 Treatment Goals Patient/Caregiver Goals Decrease pain and compensatory movements. 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 PT-OP-E Functional Tests Start: 07/04/22 14:36 Freq: Status: Active Protocol: Document 07/04/22 09:45 DCW (Rec: 07/04/22 14:55 DCW [id number]) Functional Tests Apley's Scratch Test Action 1- Left Anterior opposite shoulder, pain Action 1- Right Posterior opposite shoulder Action 2- Left T4 Action 2- Right T4 Action 3- Left T6 Action 3- Right T2 PT-OP-F Manual Assessment Start: 07/04/22 14:36 Freq: Status: Active Protocol: Document 07/04/22 09:45 DCW (Rec: 07/04/22 14:55 DCW [id number]) Manual Assessments Soft Tissue Assessment Soft Tissue Mobility Assessment Moderate tone in L parascapulars, B rhomboids, and B thoracic paraspinals. Joint Mobility Assessment Joint Mobility Assessment Good overall joint mobility with PROM, no noticeable deficits PT-OP-K Range of Motion Start: 07/04/22 14:36 Freq: Status: Active Protocol: Document 07/04/22 09:45 DCW (Rec: 07/04/22 14:55 DCW [id number]) Shoulder Goniometric Range of Motion Shoulder Right Active Testing Position Sitting Flexion 180 Abduction 180 Horizontal Adduction 35 External Rotation at 0 degrees Abduction 75 Internal Rotation Behind Back (text) T2 Left Active Testing Position Sitting Flexion 180 Abduction 180 Horizontal Adduction 15 External Rotation at 0 degrees Abduction 65 Internal Rotation Behind Back (text) T6 PT-OP-L Special Tests Start: 07/04/22 14:36 Freq: Status: Active Protocol: Document 07/04/22 09:45 DCW (Rec: 07/04/22 14:55 DCW [id number]) Special Tests Shoulder Special Tests Passive ER Rotator Cuff Test Results Negative Lift-Off Rotator Cuff Test Results Negative Chatterjee Edgar Impingement Test Results Negative Grind Labrum Test Results Negative Empty Can Test Results Positive left Drop Arm Rotator Cuff Test Results Negative Clunk Test Test Results Negative Belly Press Test Results Mild pain noted left Apprehension Test Test Results Negative Anterior Draw Test Results Negative AC Joint Compression Test Results Negative PT-OP-M Strength Start: 07/04/22 14:36 Freq: Status: Active Protocol: Document 07/04/22 09:45 DCW (Rec: 07/04/22 14:55 DCW [id number]) Shoulder Strength Shoulder Manual Muscle Testing Right Flexion 5 Normal Abduction (C5) 5 Normal External Rotation 5 Normal Internal Rotation 5 Normal Comments Scaption 5/5 Left Flexion 4 Good Abduction (C5) 5 Normal External Rotation 5 Normal Internal Rotation 4+ Good+ Comments Scaption 4/5 PT-OP-Q Treatments Start: 07/04/22 14:36 Freq: Status: Active Protocol: Document 07/14/22 16:00 DCW (Rec: 07/14/22 16:45 DCW [id number]) Cardio Equipment Upper Body Ergometer (UBE) Duration (Minutes) 5 RPM 60 Seat Position 10 Height 3.5 Therapeutic Exercises Sitting Exercises IR/ER Sitting Exercise Name 90/90 IR/ER Side left Resistance 3.3# ball Standing Exercises Body Blade Standing Exercise Name Body Blade - Flexion Side left UE PNF Standing Exercise Name D1/D2 Flexion Side left Resistance 3# Other Exercises Wall Clock Other Exercise Name Wall Clock Resistance Green->Red Resisted Ambulation Other Exercise Name Resisted UE side-stepping Resistance Green Manual Therapy Treatment Soft Tissue Mobilization R/C Body Location Supraspinatus, Infraspinatus Mobilization Type Sustained Pressure,Trigger Point Release Joint Mobilizations GH Joint L GH Direction Inferior, posterior Grade III Body Position Supine PT-OP-T Assessment and Plan Start: 07/04/22 14:36 Freq: Status: Active Protocol: Document 07/14/22 16:00 DCW (Rec: 07/14/22 16:45 DCW [id number]) Physical Therapy Assessment Impairments Impairments Activity Tolerance,Functional Activities,Functional Mobility ,Pain,Soft Tissue Mobility, Strength,Tone Goals Two Impairment Pt experiences shoulder pain during don/doff of jacket 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 Physical Therapy Plan Frequency and Duration Frequency of Treatment 1-2x/week Plan of Care Start Date 07/04/22 Plan of Care End Date 09/01/22 Therapeutic Interventions Therapeutic Interventions Home Exercise Program,Joint Mobilizations,Manual Therapy, Patient/Caregiver Education, Self-Care/Home Management,Soft Tissue Mobilization, Therapeutic Activities, Therapeutic Exercises Next Visit Focus/Plan Next Note Type Treatment Note Next Visit Plan Shoulder strengthening, STM, joint mobilization
--- NOTE | 2022-07-19 16:47 | PT.OTN ---
Current Diagnoses Pain in left shoulder (07/19/22) Unspecified rotator cuff tear or rupture of left shoulder, not specified as traumatic (07/19/22) Physical Therapy Treatment Note PT-OP-A Visit Information Start: 07/04/22 14:36 Freq: Status: Active Protocol: Document 07/19/22 16:00 DCW (Rec: 07/19/22 16:47 DCW [id number]) Out-Patient Physical Therapy Visit Information Visit Information Visit Type Treatment Note Visit Start Time 16:00 Visit Stop Time 16:45 Total Visit Minutes 45 Visit Number 5 Number of MASTER CONTROL SUPERVISOR Visits 0 Evaluation Information Evaluation Date 07/04/22 PT-OP-B Current Condition Start: 07/04/22 14:36 Freq: Status: Active Protocol: Document 07/04/22 09:45 DCW (Rec: 07/04/22 15:10 DCW [id number]) Current Condition History of Current Condition Onset Date Four month history Current Complaints Left shoulder pain with certain motions, multiple low- grade R/C tears History of Current Condition Pt is a 51 year old female presenting to skilled therapy with a four month history of left shoulder pain. Pt reports she underwent a rotator cuff repair in 2006 on her left side. Notes that during surgery, it wasn't as bad as they expected, so they just cleaned it up a bit. 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 The initial pain only lasted 30 seconds, but it has been a dull ache fairly constantly since then, although it has slowly been getting better. Because of her rotator cuff tear history, pt felt this was a very similar pain, and after waiting a bit hoping it would go away, she saw her PCP, who referred her to PT, ortho, and an MRI. Pt has already had the MRI and seen ortho, who also recommended PT. MRI showed multiple low-grade tears in her left supraspinatus, infraspinatus, and subscapularis. Pt has pain with specific activities like reaching behind her back, donning/doffing a shirt or jacket, crossing midline on the steering wheel while driving, and pushing-pulling activities. Prior Treatments and Tests Shoulder MRI: IMPRESSION: 1. Decreased, low-grade tearing of the subscapularis, supraspinatus, and infraspinatus tendons. No full-thickness rotator cuff tear. 2. Acromioclavicular and glenohumeral joint osteoarthritis. 3. No significant change in glenoid labral tearing. per Russ Teresa M.D. on 05/25/2022 Treatment Goals Patient/Caregiver Goals Decrease pain and compensatory movements. PT-OP-C Subjective Start: 07/04/22 14:36 Freq: Status: Active Protocol: Document 07/19/22 16:00 DCW (Rec: 07/19/22 16:47 DCW [id number]) OP-PT Subjective Patient Comments Patient Comments It's a little achy today, but I haven't had any pain. PT-OP-E Functional Tests Start: 07/04/22 14:36 Freq: Status: Active Protocol: Document 07/04/22 09:45 DCW (Rec: 07/04/22 14:55 DCW [id number]) Functional Tests Apley's Scratch Test Action 1- Left Anterior opposite shoulder, pain Action 1- Right Posterior opposite shoulder Action 2- Left T4 Action 2- Right T4 Action 3- Left T6 Action 3- Right T2 PT-OP-F Manual Assessment Start: 07/04/22 14:36 Freq: Status: Active Protocol: Document 07/04/22 09:45 DCW (Rec: 07/04/22 14:55 DCW [id number]) Manual Assessments Soft Tissue Assessment Soft Tissue Mobility Assessment Moderate tone in L parascapulars, B rhomboids, and B thoracic paraspinals. Joint Mobility Assessment Joint Mobility Assessment Good overall joint mobility with PROM, no noticeable deficits PT-OP-K Range of Motion Start: 07/04/22 14:36 Freq: Status: Active Protocol: Document 07/04/22 09:45 DCW (Rec: 07/04/22 14:55 DCW [id number]) Shoulder Goniometric Range of Motion Shoulder Right Active Testing Position Sitting Flexion 180 Abduction 180 Horizontal Adduction 35 External Rotation at 0 degrees Abduction 75 Internal Rotation Behind Back (text) T2 Left Active Testing Position Sitting Flexion 180 Abduction 180 Horizontal Adduction 15 External Rotation at 0 degrees Abduction 65 Internal Rotation Behind Back (text) T6 PT-OP-L Special Tests Start: 07/04/22 14:36 Freq: Status: Active Protocol: Document 07/04/22 09:45 DCW (Rec: 07/04/22 14:55 DCW [id number]) Special Tests Shoulder Special Tests Passive ER Rotator Cuff Test Results Negative Lift-Off Rotator Cuff Test Results Negative Chatterjee Edgar Impingement Test Results Negative Grind Labrum Test Results Negative Empty Can Test Results Positive left Drop Arm Rotator Cuff Test Results Negative Clunk Test Test Results Negative Belly Press Test Results Mild pain noted left Apprehension Test Test Results Negative Anterior Draw Test Results Negative AC Joint Compression Test Results Negative PT-OP-M Strength Start: 07/04/22 14:36 Freq: Status: Active Protocol: Document 07/04/22 09:45 DCW (Rec: 07/04/22 14:55 DCW [id number]) Shoulder Strength Shoulder Manual Muscle Testing Right Flexion 5 Normal Abduction (C5) 5 Normal External Rotation 5 Normal Internal Rotation 5 Normal Comments Scaption 5/5 Left Flexion 4 Good Abduction (C5) 5 Normal External Rotation 5 Normal Internal Rotation 4+ Good+ Comments Scaption 4/5 PT-OP-Q Treatments Start: 07/04/22 14:36 Freq: Status: Active Protocol: Document 07/19/22 16:00 DCW (Rec: 07/19/22 16:47 DCW [id number]) Cardio Equipment Upper Body Ergometer (UBE) Duration (Minutes) 6 RPM 60 Seat Position 10 Height 3.5 Therapeutic Exercises Sitting Exercises IR/ER Sitting Exercise Name 90/90 IR/ER Side left Resistance 3.3# ball Standing Exercises Body Blade Standing Exercise Name Body Blade - Flexion, Abduction Side left UE PNF Standing Exercise Name D1/D2 Flexion Side left Resistance 3# Other Exercises Resisted Ambulation Other Exercise Name Resisted UE side-stepping Resistance Red Manual Therapy Treatment Soft Tissue Mobilization R/C Body Location Supraspinatus, Infraspinatus Mobilization Type Sustained Pressure,Trigger Point Release Joint Mobilizations GH Joint L GH Direction Inferior, posterior Grade III Body Position Supine PT-OP-T Assessment and Plan Start: 07/04/22 14:36 Freq: Status: Active Protocol: Document 07/19/22 16:00 DCW (Rec: 07/19/22 16:47 DCW [id number]) Physical Therapy Assessment Impairments Impairments Activity Tolerance,Functional Activities,Functional Mobility ,Pain,Soft Tissue Mobility, Strength,Tone Goals Two Impairment Pt experiences shoulder pain during don/doff of 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 (LTG) Pt to improve ability to reach behind her back in order to don/doff jacket without pain 100% of the time LTG Duration 08/30/22 One Impairment Pt does not have an appropriate home exercise program Short Term Goal (STG) Pt to be independent and compliant with an appropriate HEP STG Duration 08/02/22 Assessment Summary Assessment Pt did admit to feeling like she had tightened up a bit, is overall stressed out with helping run a [employer] 5K next weekend and a rough work schedule the last few weeks, which is likely adding to increased tone throughout, but is compliant with HEP and is showing good improvement with shoulder mobility. Physical Therapy Plan Frequency and Duration Frequency of Treatment 1-2x/week Plan of Care Start Date 07/04/22 Plan of Care End Date 09/01/22 Therapeutic Interventions Therapeutic Interventions Home Exercise Program,Joint Mobilizations,Manual Therapy, Patient/Caregiver Education, Self-Care/Home Management,Soft Tissue Mobilization, Therapeutic Activities, Therapeutic Exercises Next Visit Focus/Plan Next Note Type Treatment Note Next Visit Plan Shoulder strengthening, STM, joint mobilization
--- NOTE | 2022-07-22 16:38 | PT.OTN ---
Current Diagnoses Pain in left shoulder (07/22/22) Unspecified rotator cuff tear or rupture of left shoulder, not specified as traumatic (07/22/22) Physical Therapy Treatment Note PT-OP-A Visit Information Start: 07/04/22 14:36 Freq: Status: Active Protocol: Document 07/22/22 16:00 DCW (Rec: 07/22/22 16:37 DCW [id number]) Out-Patient Physical Therapy Visit Information Visit Information Visit Type Treatment Note Visit Note Shortened due to patient request Visit Start Time 16:00 Visit Stop Time 16:30 Total Visit Minutes 30 Visit Number 6 Number of FILER FINISH Visits 0 Evaluation Information Evaluation Date 07/04/22 PT-OP-B Current Condition Start: 07/04/22 14:36 Freq: Status: Active Protocol: Document 07/04/22 09:45 DCW (Rec: 07/04/22 15:10 DCW [id number]) Current Condition History of Current Condition Onset Date Four month history Current Complaints Left shoulder pain with certain motions, multiple low- grade R/C tears History of Current Condition Pt is a 51 year old female presenting to skilled therapy with a four month history of left shoulder pain. Pt reports she underwent a rotator cuff repair in 2006 on her left side. Notes that during surgery, it wasn't as bad as they expected, so they just cleaned it up a bit. 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 The initial pain only lasted 30 seconds, but it has been a dull ache fairly constantly since then, although it has slowly been getting better. Because of her rotator cuff tear history, pt felt this was a very similar pain, and after waiting a bit hoping it would go away, she saw her PCP, who referred her to PT, ortho, and an MRI. Pt has already had the MRI and seen ortho, who also recommended PT. MRI showed multiple low-grade tears in her left supraspinatus, infraspinatus, and subscapularis. Pt has pain with specific activities like reaching behind her back, donning/doffing a shirt or jacket, crossing midline on the steering wheel while driving, and pushing-pulling activities. Prior Treatments and Tests Shoulder MRI: IMPRESSION: 1. Decreased, low-grade tearing of the subscapularis, supraspinatus, and infraspinatus tendons. No full-thickness rotator cuff tear. 2. Acromioclavicular and glenohumeral joint osteoarthritis. 3. No significant change in glenoid labral tearing. per Russ Teresa M.D. on 05/25/2022 Treatment Goals Patient/Caregiver Goals Decrease pain and compensatory movements. PT-OP-C Subjective Start: 07/04/22 14:36 Freq: Status: Active Protocol: Document 07/22/22 16:00 DCW (Rec: 07/22/22 16:37 DCW [id number]) OP-PT Subjective Patient Comments Patient Comments I had a couple of achy times, still reaching back to reach my radio is the only discomfort, but it's feeling good. PT-OP-E Functional Tests Start: 07/04/22 14:36 Freq: Status: Active Protocol: Document 07/04/22 09:45 DCW (Rec: 07/04/22 14:55 DCW [id number]) Functional Tests Apley's Scratch Test Action 1- Left Anterior opposite shoulder, pain Action 1- Right Posterior opposite shoulder Action 2- Left T4 Action 2- Right T4 Action 3- Left T6 Action 3- Right T2 PT-OP-F Manual Assessment Start: 07/04/22 14:36 Freq: Status: Active Protocol: Document 07/04/22 09:45 DCW (Rec: 07/04/22 14:55 DCW [id number]) Manual Assessments Soft Tissue Assessment Soft Tissue Mobility Assessment Moderate tone in L parascapulars, B rhomboids, and B thoracic paraspinals. Joint Mobility Assessment Joint Mobility Assessment Good overall joint mobility with PROM, no noticeable deficits PT-OP-K Range of Motion Start: 07/04/22 14:36 Freq: Status: Active Protocol: Document 07/04/22 09:45 DCW (Rec: 07/04/22 14:55 DCW [id number]) Shoulder Goniometric Range of Motion Shoulder Right Active Testing Position Sitting Flexion 180 Abduction 180 Horizontal Adduction 35 External Rotation at 0 degrees Abduction 75 Internal Rotation Behind Back (text) T2 Left Active Testing Position Sitting Flexion 180 Abduction 180 Horizontal Adduction 15 External Rotation at 0 degrees Abduction 65 Internal Rotation Behind Back (text) T6 PT-OP-L Special Tests Start: 07/04/22 14:36 Freq: Status: Active Protocol: Document 07/04/22 09:45 DCW (Rec: 07/04/22 14:55 DCW [id number]) Special Tests Shoulder Special Tests Passive ER Rotator Cuff Test Results Negative Lift-Off Rotator Cuff Test Results Negative Chatterjee Edgar Impingement Test Results Negative Grind Labrum Test Results Negative Empty Can Test Results Positive left Drop Arm Rotator Cuff Test Results Negative Clunk Test Test Results Negative Belly Press Test Results Mild pain noted left Apprehension Test Test Results Negative Anterior Draw Test Results Negative AC Joint Compression Test Results Negative PT-OP-M Strength Start: 07/04/22 14:36 Freq: Status: Active Protocol: Document 07/04/22 09:45 DCW (Rec: 07/04/22 14:55 DCW [id number]) Shoulder Strength Shoulder Manual Muscle Testing Right Flexion 5 Normal Abduction (C5) 5 Normal External Rotation 5 Normal Internal Rotation 5 Normal Comments Scaption 5/5 Left Flexion 4 Good Abduction (C5) 5 Normal External Rotation 5 Normal Internal Rotation 4+ Good+ Comments Scaption 4/5 PT-OP-Q Treatments Start: 07/04/22 14:36 Freq: Status: Active Protocol: Document 07/22/22 16:00 DCW (Rec: 07/22/22 16:37 DCW [id number]) Cardio Equipment Upper Body Ergometer (UBE) Duration (Minutes) 6 RPM 60 Seat Position 10 Height 3.5 Therapeutic Exercises Standing Exercises Body Blade Standing Exercise Name Body Blade - Flexion, Abduction Side left Manual Therapy Treatment Soft Tissue Mobilization R/C Body Location Supraspinatus, Infraspinatus Mobilization Type Sustained Pressure,Trigger Point Release Joint Mobilizations GH Joint L GH Direction Inferior, posterior Grade III Body Position Supine PT-OP-T Assessment and Plan Start: 07/04/22 14:36 Freq: Status: Active Protocol: Document 07/22/22 16:00 DCW (Rec: 07/22/22 16:37 DCW [id number]) Physical Therapy Assessment Impairments Impairments Activity Tolerance,Functional Activities,Functional Mobility ,Pain,Soft Tissue Mobility, Strength,Tone Goals Two Impairment Pt experiences shoulder pain during don/doff of jacket Detention Goal (LTG) Pt to improve ability to reach behind her back in order to don/doff jacket without pain 100% of the time LTG Duration 3/28/23 One Impairment Pt does not have an appropriate home exercise program Short Term Goal (STG) Pt to be independent and compliant with an appropriate HEP STG Duration 08/02/22 Assessment Summary Assessment Short session today due to pt request. Pt tolerated well, improving with IR and horizontal adduction. Pt hopeful that following her olimpia event this weekend and getting her work schedule back to relatively normal, it will help reduce her stress and decrease her shoulder pain . Physical Therapy Plan Frequency and Duration Frequency of Treatment 1-2x/week Plan of Care Start Date 07/04/22 Plan of Care End Date 09/01/22 Therapeutic Interventions Therapeutic Interventions Home Exercise Program,Joint Mobilizations,Manual Therapy, Patient/Caregiver Education, Self-Care/Home Management,Soft Tissue Mobilization, Therapeutic Activities, Therapeutic Exercises Next Visit Focus/Plan Next Note Type Treatment Note Next Visit Plan Shoulder strengthening, STM, joint mobilization
--- NOTE | 2022-07-26 16:42 | PT.OTN ---
Current Diagnoses Pain in left shoulder (07/26/22) Unspecified rotator cuff tear or rupture of left shoulder, not specified as traumatic (07/26/22) Physical Therapy Treatment Note PT-OP-A Visit Information Start: 07/04/22 14:36 Freq: Status: Active Protocol: Document 07/26/22 16:02 DCW (Rec: 07/26/22 16:42 DCW [id number]) Out-Patient Physical Therapy Visit Information Visit Information Visit Type Treatment Note Visit Start Time 16:02 Visit Stop Time 16:45 Total Visit Minutes 43 Visit Number 7 Number of MASONRY SUPERVISOR Visits 0 Evaluation Information Evaluation Date 07/04/22 PT-OP-B Current Condition Start: 07/04/22 14:36 Freq: Status: Active Protocol: Document 07/04/22 09:45 DCW (Rec: 07/04/22 15:10 DCW [id number]) Current Condition History of Current Condition Onset Date Four month history Current Complaints Left shoulder pain with certain motions, multiple low- grade R/C tears History of Current Condition Pt is a 51 year old female presenting to skilled therapy with a four month history of left shoulder pain. Pt reports she underwent a rotator cuff repair in 2006 on her left side. Notes that during surgery, it wasn't as bad as they expected, so they just cleaned it up a bit. 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 The initial pain only lasted 30 seconds, but it has been a dull ache fairly constantly since then, although it has slowly been getting better. Because of her rotator cuff tear history, pt felt this was a very similar pain, and after waiting a bit hoping it would go away, she saw her PCP, who referred her to PT, ortho, and an MRI. Pt has already had the MRI and seen ortho, who also recommended PT. MRI showed multiple low-grade tears in her left supraspinatus, infraspinatus, and subscapularis. Pt has pain with specific activities like reaching behind her back, donning/doffing a shirt or jacket, crossing midline on the steering wheel while driving, and pushing-pulling activities. Prior Treatments and Tests Shoulder MRI: IMPRESSION: 1. Decreased, low-grade tearing of the subscapularis, supraspinatus, and infraspinatus tendons. No full-thickness rotator cuff tear. 2. Acromioclavicular and glenohumeral joint osteoarthritis. 3. No significant change in glenoid labral tearing. per Russ Teresa M.D. on 05/25/2022 Treatment Goals Patient/Caregiver Goals Decrease pain and compensatory movements. PT-OP-C Subjective Start: 07/04/22 14:36 Freq: Status: Active Protocol: Document 07/26/22 16:02 DCW (Rec: 07/26/22 16:42 DCW [id number]) OP-PT Subjective Patient Comments Patient Comments Pt presents today with much less stress after her olimpia event this weekend. Reports little aches here and there, but no sharp pains inher shoulder. PT-OP-E Functional Tests Start: 07/04/22 14:36 Freq: Status: Active Protocol: Document 07/04/22 09:45 DCW (Rec: 07/04/22 14:55 DCW [id number]) Functional Tests Apley's Scratch Test Action 1- Left Anterior opposite shoulder, pain Action 1- Right Posterior opposite shoulder Action 2- Left T4 Action 2- Right T4 Action 3- Left T6 Action 3- Right T2 PT-OP-F Manual Assessment Start: 07/04/22 14:36 Freq: Status: Active Protocol: Document 07/04/22 09:45 DCW (Rec: 07/04/22 14:55 DCW [id number]) Manual Assessments Soft Tissue Assessment Soft Tissue Mobility Assessment Moderate tone in L parascapulars, B rhomboids, and B thoracic paraspinals. Joint Mobility Assessment Joint Mobility Assessment Good overall joint mobility with PROM, no noticeable deficits PT-OP-K Range of Motion Start: 07/04/22 14:36 Freq: Status: Active Protocol: Document 07/04/22 09:45 DCW (Rec: 07/04/22 14:55 DCW [id number]) Shoulder Goniometric Range of Motion Shoulder Right Active Testing Position Sitting Flexion 180 Abduction 180 Horizontal Adduction 35 External Rotation at 0 degrees Abduction 75 Internal Rotation Behind Back (text) T2 Left Active Testing Position Sitting Flexion 180 Abduction 180 Horizontal Adduction 15 External Rotation at 0 degrees Abduction 65 Internal Rotation Behind Back (text) T6 PT-OP-L Special Tests Start: 07/04/22 14:36 Freq: Status: Active Protocol: Document 07/04/22 09:45 DCW (Rec: 07/04/22 14:55 DCW [id number]) Special Tests Shoulder Special Tests Passive ER Rotator Cuff Test Results Negative Lift-Off Rotator Cuff Test Results Negative Chatterjee Edgar Impingement Test Results Negative Grind Labrum Test Results Negative Empty Can Test Results Positive left Drop Arm Rotator Cuff Test Results Negative Clunk Test Test Results Negative Belly Press Test Results Mild pain noted left Apprehension Test Test Results Negative Anterior Draw Test Results Negative AC Joint Compression Test Results Negative PT-OP-M Strength Start: 07/04/22 14:36 Freq: Status: Active Protocol: Document 07/04/22 09:45 DCW (Rec: 07/04/22 14:55 DCW [id number]) Shoulder Strength Shoulder Manual Muscle Testing Right Flexion 5 Normal Abduction (C5) 5 Normal External Rotation 5 Normal Internal Rotation 5 Normal Comments Scaption 5/5 Left Flexion 4 Good Abduction (C5) 5 Normal External Rotation 5 Normal Internal Rotation 4+ Good+ Comments Scaption 4/5 PT-OP-Q Treatments Start: 07/04/22 14:36 Freq: Status: Active Protocol: Document 07/26/22 16:02 DCW (Rec: 07/26/22 16:42 DCW [id number]) Cardio Equipment Upper Body Ergometer (UBE) Duration (Minutes) 6 RPM 60 Seat Position 10 Height 3.5 Gym Equipment Therapeutic Ball Walk outs Exercise Details Prone walk-outs Ball Size/Color Green - 65 cm Body Position Prone Therapeutic Exercises Sitting Exercises IR/ER Sitting Exercise Name 90/90 IR/ER Side left Resistance 4.4# ball Standing Exercises Internal Rotation Standing Exercise Name Internal rotation stretch Side left Equipment Used Pulleys Body Blade Standing Exercise Name Body Blade - Flexion, Abduction Side left Other Exercises Resisted Ambulation Other Exercise Name Resisted UE side-stepping Resistance Green Manual Therapy Treatment Soft Tissue Mobilization R/C Body Location Supraspinatus, Infraspinatus Mobilization Type Sustained Pressure,Trigger Point Release Joint Mobilizations GH Joint L GH Direction Inferior, posterior Grade III Body Position Supine PT-OP-T Assessment and Plan Start: 07/04/22 14:36 Freq: Status: Active Protocol: Document 07/26/22 16:02 DCW (Rec: 07/26/22 16:42 DCW [id number]) Physical Therapy Assessment Impairments Impairments Activity Tolerance,Functional Activities,Functional Mobility ,Pain,Soft Tissue Mobility, Strength,Tone Goals Two Impairment Pt experiences shoulder pain during don/doff of jacket Group Home Goal (LTG) Pt to improve ability to reach behind her back in order to don/doff jacket without pain 100% of the time LTG Duration 08/30/22 One Impairment Pt does not have an appropriate home exercise program Short Term Goal (STG) Pt to be independent and compliant with an appropriate HEP STG Duration 08/02/22 Assessment Summary Assessment Pt feeling pretty comfortable with her shoulder function, feels that she will be ready for potential discharge following her appointment next week, would like to review an comprehensive HEP next week to continue independently. Will be following-up with the surgeon the week afterward, will likely discharge following word from Dr Pathak. Physical Therapy Plan Frequency and Duration Frequency of Treatment 1-2x/week Plan of Care Start Date 07/04/22 Plan of Care End Date 09/01/22 Therapeutic Interventions Therapeutic Interventions Home Exercise Program,Joint Mobilizations,Manual Therapy, Patient/Caregiver Education, Self-Care/Home Management,Soft Tissue Mobilization, Therapeutic Activities, Therapeutic Exercises Next Visit Focus/Plan Next Note Type Treatment Note Next Visit Plan Shoulder strengthening, STM, joint mobilization
--- NOTE | 2022-07-29 15:59 | PT.OTN ---
Current Diagnoses Pain in left shoulder (07/29/22) Unspecified rotator cuff tear or rupture of left shoulder, not specified as traumatic (07/29/22) Physical Therapy Treatment Note PT-OP-A Visit Information Start: 07/04/22 14:36 Freq: Status: Active Protocol: Document 07/29/22 15:15 DCW (Rec: 07/29/22 15:56 DCW [id number]) Out-Patient Physical Therapy Visit Information Visit Information Visit Type Treatment Note Visit Start Time 15:15 Visit Stop Time 15:45 Total Visit Minutes 30 Visit Number 8 Number of MECHANIST Visits 0 Evaluation Information Evaluation Date 07/04/22 PT-OP-B Current Condition Start: 07/04/22 14:36 Freq: Status: Active Protocol: Document 07/04/22 09:45 DCW (Rec: 07/04/22 15:10 DCW [id number]) Current Condition History of Current Condition Onset Date Four month history Current Complaints Left shoulder pain with certain motions, multiple low- grade R/C tears History of Current Condition Pt is a 51 year old female presenting to skilled therapy with a four month history of left shoulder pain. Pt reports she underwent a rotator cuff repair in 2006 on her left side. Notes that during surgery, it wasn't as bad as they expected, so they just cleaned it up a bit. 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 The initial pain only lasted 30 seconds, but it has been a dull ache fairly constantly since then, although it has slowly been getting better. Because of her rotator cuff tear history, pt felt this was a very similar pain, and after waiting a bit hoping it would go away, she saw her PCP, who referred her to PT, ortho, and an MRI. Pt has already had the MRI and seen ortho, who also recommended PT. MRI showed multiple low-grade tears in her left supraspinatus, infraspinatus, and subscapularis. Pt has pain with specific activities like reaching behind her back, donning/doffing a shirt or jacket, crossing midline on the steering wheel while driving, and pushing-pulling activities. Prior Treatments and Tests Shoulder MRI: IMPRESSION: 1. Decreased, low-grade tearing of the subscapularis, supraspinatus, and infraspinatus tendons. No full-thickness rotator cuff tear. 2. Acromioclavicular and glenohumeral joint osteoarthritis. 3. No significant change in glenoid labral tearing. per Russ Teresa M.D. on 05/25/2022 Treatment Goals Patient/Caregiver Goals Decrease pain and compensatory movements. PT-OP-C Subjective Start: 07/04/22 14:36 Freq: Status: Active Protocol: Document 07/29/22 15:15 DCW (Rec: 07/29/22 15:56 DCW [id number]) OP-PT Subjective Patient Comments Patient Comments Pt notes her shoulder feels good, but she just woke up, so she also hasn't had much time to do anything with her arm yet. PT-OP-E Functional Tests Start: 07/04/22 14:36 Freq: Status: Active Protocol: Document 07/29/22 15:15 DCW (Rec: 07/29/22 15:58 DCW [id number]) Functional Tests Apley's Scratch Test Action 1- Left Posterior opposite shoulder, pain Action 1- Right Posterior opposite shoulder Action 2- Left T4 Action 2- Right T4 Action 3- Left T4 Action 3- Right T2 PT-OP-F Manual Assessment Start: 07/04/22 14:36 Freq: Status: Active Protocol: Document 07/29/22 15:15 DCW (Rec: 07/29/22 15:58 DCW [id number]) Manual Assessments Soft Tissue Assessment Soft Tissue Mobility Assessment Mild tone in L Teres Minor Joint Mobility Assessment Joint Mobility Assessment Good overall joint mobility with PROM, no noticeable deficits PT-OP-K Range of Motion Start: 07/04/22 14:36 Freq: Status: Active Protocol: Document 07/29/22 15:15 DCW (Rec: 07/29/22 15:58 DCW [id number]) Shoulder Goniometric Range of Motion Shoulder Right Active Testing Position Sitting Flexion 180 Abduction 180 Horizontal Adduction 35 External Rotation at 0 degrees Abduction 75 Internal Rotation Behind Back (text) T2 Left Active Testing Position Sitting Flexion 180 Abduction 180 Horizontal Adduction 30 External Rotation at 0 degrees Abduction 65 Internal Rotation Behind Back (text) T4 PT-OP-L Special Tests Start: 07/04/22 14:36 Freq: Status: Active Protocol: Document 07/29/22 15:15 DCW (Rec: 07/29/22 15:58 DCW [id number]) Special Tests Shoulder Special Tests Chatterjee Edgar Impingement Test Results Negative Empty Can Test Results Negative Belly Press Test Results Negative PT-OP-M Strength Start: 07/04/22 14:36 Freq: Status: Active Protocol: Document 07/29/22 15:15 DCW (Rec: 07/29/22 15:58 DCW [id number]) Shoulder Strength Shoulder Manual Muscle Testing Right Flexion 5 Normal Abduction (C5) 5 Normal External Rotation 5 Normal Internal Rotation 5 Normal Comments Scaption 5/5 Left Flexion 5 Normal Abduction (C5) 5 Normal External Rotation 5 Normal Internal Rotation 5 Normal Comments Scaption 5/5 PT-OP-Q Treatments Start: 07/04/22 14:36 Freq: Status: Active Protocol: Document 07/29/22 15:15 DCW (Rec: 07/29/22 15:56 DCW [id number]) Cardio Equipment Upper Body Ergometer (UBE) Duration (Minutes) 6 RPM 60 Seat Position 10 Height 3.5 Therapeutic Exercises Standing Exercises Body Blade Standing Exercise Name Body Blade - Flexion, Abduction Side left PT-OP-T Assessment and Plan Start: 07/04/22 14:36 Freq: Status: Active Protocol: Document 07/29/22 15:15 DCW (Rec: 07/29/22 15:56 DCW [id number]) Physical Therapy Assessment Impairments Impairments Activity Tolerance,Functional Activities,Functional Mobility ,Pain,Soft Tissue Mobility, Strength,Tone Goals Two Impairment Pt experiences shoulder pain during don/doff of jacket Senior Living Goal (LTG) Pt to improve ability to reach behind her back in order to don/doff jacket without pain 100% of the time LTG Duration 08/30/22 One Impairment Pt does not have an appropriate home exercise program Short Term Goal (STG) Pt to be independent and compliant with an appropriate HEP STG Duration 08/02/22 Assessment Summary Assessment Pt feels appropriate for discharge, has met all goals, but would prefer to wait until she sees Dr Pathak next week before discharge. Physical Therapy Plan Frequency and Duration Frequency of Treatment 1-2x/week Plan of Care Start Date 07/04/22 Plan of Care End Date 09/01/22 Therapeutic Interventions Therapeutic Interventions Home Exercise Program,Joint Mobilizations,Manual Therapy, Patient/Caregiver Education, Self-Care/Home Management,Soft Tissue Mobilization, Therapeutic Activities, Therapeutic Exercises Next Visit Focus/Plan Next Note Type Treatment Note Next Visit Plan Shoulder strengthening, STM, joint mobilization
--- NOTE | 2022-08-15 10:31 | PT.OPDS ---
Current Diagnoses Pain in left shoulder (07/29/22) Unspecified rotator cuff tear or rupture of left shoulder, not specified as traumatic (07/29/22) Visit Care Team Role Provider Type Ana Srivastava MD Family Provider Physician Primary Care Provider Referring Provider Specialty: Family Practice Address: [address] [place] [address], [address], [place], [address] Email: [email or web address] Da Pathak MD Attending Provider Physician Specialty: Orthopedics Orthopedic Surgery Address: [address] [place] [address], [id number] Email: [email or web address] Visit Number Visit Number 8 Discharge Summary PT-OP-B Current Condition Start: 07/04/22 14:36 Freq: Status: Active Protocol: Document 07/04/22 09:45 DCW (Rec: 07/04/22 15:10 DCW [id number]) Current Condition History of Current Condition Onset Date Four month history Current Complaints Left shoulder pain with certain motions, multiple low- grade R/C tears History of Current Condition Pt is a 51 year old female presenting to skilled therapy with a four month history of left shoulder pain. Pt reports she underwent a rotator cuff repair in 2006 on her left side. Notes that during surgery, it wasn't as bad as they expected, so they just cleaned it up a bit. 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 The initial pain only lasted 30 seconds, but it has been a dull ache fairly constantly since then, although it has slowly been getting better. Because of her rotator cuff tear history, pt felt this was a very similar pain, and after waiting a bit hoping it would go away, she saw her PCP, who referred her to PT, ortho, and an MRI. Pt has already had the MRI and seen ortho, who also recommended PT. MRI showed multiple low-grade tears in her left supraspinatus, infraspinatus, and subscapularis. Pt has pain with specific activities like reaching behind her back, donning/doffing a shirt or jacket, crossing midline on the steering wheel while driving, and pushing-pulling activities. Prior Treatments and Tests Shoulder MRI: IMPRESSION: 1. Decreased, low-grade tearing of the subscapularis, supraspinatus, and infraspinatus tendons. No full-thickness rotator cuff tear. 2. Acromioclavicular and glenohumeral joint osteoarthritis. 3. No significant change in glenoid labral tearing. per Russ Teresa M.D. on 05/25/2022 Treatment Goals Patient/Caregiver Goals Decrease pain and compensatory movements. PT-OP-C Subjective Start: 07/04/22 14:36 Freq: Status: Active Protocol: Document 07/29/22 15:15 DCW (Rec: 07/29/22 15:56 DCW [id number]) OP-PT Subjective Patient Comments Patient Comments Pt notes her shoulder feels good, but she just woke up, so she also hasn't had much time to do anything with her arm yet. PT-OP-E Functional Tests Start: 07/04/22 14:36 Freq: Status: Active Protocol: Document 07/29/22 15:15 DCW (Rec: 07/29/22 15:58 DCW [id number]) Functional Tests Apley's Scratch Test Action 1- Left Posterior opposite shoulder, pain Action 1- Right Posterior opposite shoulder Action 2- Left T4 Action 2- Right T4 Action 3- Left T4 Action 3- Right T2 PT-OP-F Manual Assessment Start: 07/04/22 14:36 Freq: Status: Active Protocol: Document 07/29/22 15:15 DCW (Rec: 07/29/22 15:58 DCW [id number]) Manual Assessments Soft Tissue Assessment Soft Tissue Mobility Assessment Mild tone in L Teres Minor Joint Mobility Assessment Joint Mobility Assessment Good overall joint mobility with PROM, no noticeable deficits PT-OP-K Range of Motion Start: 07/04/22 14:36 Freq: Status: Active Protocol: Document 07/29/22 15:15 DCW (Rec: 07/29/22 15:58 DCW [id number]) Shoulder Goniometric Range of Motion Shoulder Right Active Testing Position Sitting Flexion 180 Abduction 180 Horizontal Adduction 35 External Rotation at 0 degrees Abduction 75 Internal Rotation Behind Back (text) T2 Left Active Testing Position Sitting Flexion 180 Abduction 180 Horizontal Adduction 30 External Rotation at 0 degrees Abduction 65 Internal Rotation Behind Back (text) T4 PT-OP-L Special Tests Start: 07/04/22 14:36 Freq: Status: Active Protocol: Document 07/29/22 15:15 DCW (Rec: 07/29/22 15:58 DCW [id number]) Special Tests Shoulder Special Tests Chatterjee Edgar Impingement Test Results Negative Empty Can Test Results Negative Belly Press Test Results Negative PT-OP-M Strength Start: 07/04/22 14:36 Freq: Status: Active Protocol: Document 07/29/22 15:15 DCW (Rec: 07/29/22 15:58 DCW [id number]) Shoulder Strength Shoulder Manual Muscle Testing Right Flexion 5 Normal Abduction (C5) 5 Normal External Rotation 5 Normal Internal Rotation 5 Normal Comments Scaption 5/5 Left Flexion 5 Normal Abduction (C5) 5 Normal External Rotation 5 Normal Internal Rotation 5 Normal Comments Scaption 5/5 PT-OP-T Assessment and Plan Start: 07/04/22 14:36 Freq: Status: Active Protocol: Document 08/15/22 10:30 DCW (Rec: 08/15/22 10:31 DCW [id number]) Physical Therapy Assessment Impairments Impairments Activity Tolerance,Functional Activities,Functional Mobility ,Pain,Soft Tissue Mobility, Strength,Tone Goals Two Impairment Pt experiences shoulder 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 Discharge from skilled PT. Physical Therapy Plan Frequency and Duration Frequency of Treatment 1-2x/week Plan of Care Start Date 07/04/22 Plan of Care End Date 09/01/22 Therapeutic Interventions Therapeutic Interventions Home Exercise Program,Joint Mobilizations,Manual Therapy, Patient/Caregiver Education, Self-Care/Home Management,Soft Tissue Mobilization, Therapeutic Activities, Therapeutic Exercises Discharge Physical Therapy Discharge Reasons Goals Met Next Visit Focus/Plan Next Note Type Discharge Summary
== END 2022-08-15 12:29 | disposition home or self-care (01) ==
LOC: PHYS 15:15
PROVIDERS: Family Provider Family Medicine; PCP Family Medicine; Referring Provider Family Medicine; Visit Provider Orthopaedic Surgery
DX: M75.102 Unspecified rotator cuff tear or rupture of left shoulder, not specified as traumatic (principal); M25.512 Pain in left shoulder
CPT/HCPCS: 97110; 97140; 97161

== ENCOUNTER → 2024-01-30 11:41 | Outpatient (CLI) | payer OTHER, SELFPAY ==
--- NOTE | 2024-01-30 11:42 | DI.MG.S_ITS ---
BILATERAL DIGITAL SCREENING MAMMOGRAM 3D/2D WITH CAD: 01/30/2024 CLINICAL: Routine screening. Comparison is made to exams dated: 05/05/2021 mammogram, 09/12/2018 mammogram, and 03/21/2014 mammogram - [facility]. Both breasts are heterogeneously dense, which may obscure small masses (category c / 51-75% glandular tissue). Current study was also evaluated with a Computer Aided Detection (CAD) system. No significant masses, calcifications, or other findings are seen in either breast. There has been no significant interval change. IMPRESSION: NEGATIVE There is no mammographic evidence of malignancy. A 1 year screening mammogram is recommended. Based on the Tyrer Cuzick model (a risk assessment model) the patient's lifetime risk is 13.2% and her 10 year risk is 3.4%. According to the ACR, ACS, and NCCN guidelines, an annual breast MRI exam along with mammogram is recommended if the patient's lifetime risk is 20% or greater. This exam was interpreted at Station ID: [id number]. NOTE: For mammograms, a report in lay terms will be sent to the patient. Approximately 15% of breast malignancies will not be visualized mammographically. In the management of a palpable breast mass, a negative mammogram must not discourage biopsy of a clinically suspicious lesion. Electronically Signed By: Jose jean/pina:01/30/2024 13:13:00 letter sent: Normal Exam ACR BI-RADS Category 1: Negative [id number]
== END ==
LOC: MAMMO 11:42
PROVIDERS: Family Provider Family Medicine; PCP Family Medicine; Referring Provider Family Medicine; Visit Provider Family Medicine
DX: Z12.31 Encounter for screening mammogram for malignant neoplasm of breast (principal); R92.333 Mammographic heterogeneous density, bilateral breasts
CPT/HCPCS: 77063; 77067

== ENCOUNTER → 2024-08-08 13:44 | Outpatient (CLI) | payer OTHER, SELFPAY | PROVIDERS: Family Provider Family Medicine; PCP Family Medicine; Referring Provider Family Medicine; Visit Provider Family Medicine | DX: G56.21 Lesion of ulnar nerve, right upper limb (principal) | CPT/HCPCS: 95886; 95909 ==

== ENCOUNTER → 2024-10-07 19:16 | Outpatient (CLI) | payer OTHER, SELFPAY ==
--- NOTE | 2024-10-07 | DI.MRI.S_ITS ---
PROCEDURE: MR THORACIC SPINE WO CON INDICATIONS: spinal stenosis TECHNIQUE: Noncontrast sagittal T1 spine echo and T2 fast spin echo, sagittal STIR, and T2 fast spin echo through the thoracic spine. COMPARISON: None. FINDINGS: Image quality: Excellent. Alignment and Curvature: There is normal bony alignment. Bone Marrow: Marrow is of normal overall signal. No acute vertebral body compression fractures. Spinal Cord: Visualized spinal cord is normal in size and signal. Paraspinous Soft Tissues: No paravertebral masses. Miscellaneous: On axial images, central canal and foramina appear widely patent at all scanned levels. IMPRESSION: Unremarkable thoracic spine MRI. No canal stenosis or foraminal stenosis. Thoracic cord is normal caliber, contour, and signal characteristics. Dictated by: Riley Hernandez M.D. on 10/08/2024 at 8:58 Approved by: Riley Hernandez M.D. on 10/08/2024 at 8:59
--- NOTE | 2024-10-07 | DI.MRI.S_ITS ---
P wall ROCEDURE: MR CERVICAL SPINE WO CON INDICATIONS: SPINAL STENOSIS TECHNIQUE: Noncontrast sagittal T1 spin echo and T2 fast spin echo, sagittal STIR, foraminal oblique sagittal T2 fast spin echo, and axial gradient echo or T2 fast spin echo through the cervical spine. COMPARISON: None. FINDINGS: Image quality: Excellent. Alignment and Curvature: Trace retrolisthesis of C4 on C5. 3.4 mm of anterolisthesis of C5 on C6. Question partial congenital fusion of the C6-C7 vertebral bodies, to the left of midline. Bone Marrow: Marrow demonstrates normal overall signal. Spinal Cord: Visualized spinal cord has normal size and signal. No cerebellar tonsillar herniation. Paraspinous Soft Tissues: No paravertebral masses. Prevertebral soft tissues are normal in thickness. C2-C3: Left facet hypertrophy. No canal stenosis or foraminal stenosis. C3-C4: Disc bulge with very shallow broad-based superimposed right paracentral disc protrusion. Right facet hypertrophy. Prominent right uncovertebral joint hypertrophy. Moderate to severe right foraminal narrowing is noted, appreciated on right foraminal sagittal oblique image 6 of series 8. There is associated right foraminal C4 nerve root impingement. C4-C5: Chronic disc height loss. Posterior disc post osteophyte. No significant canal stenosis. AP diameter of the central canal is 10.6 mm. Reference T2 axial image 22 of series 6. There are quite prominent bilateral uncovertebral joint osteophytes. There is bilateral facet hypertrophy, right greater than left. There is severe right foraminal narrowing, well appreciated on right foraminal oblique image 6 of series 8. There is moderate to severe left foraminal narrowing. There is bilateral foraminal C5 nerve root impingement, right greater than left. C5-C6: Anterolisthesis of C5 on C6. Chronic disc height loss. Diffuse posterior disc post osteophyte. There is indentation on the ventral cord. However, there is no central canal stenosis. There is bilateral uncovertebral joint hypertrophy, quite prominent on the left. There is no significant right foraminal narrowing. There is severe left foraminal narrowing with left foraminal C6 nerve root impingement. Reference left foraminal oblique image 9 of series 9 and axial image 27 of series 6. C6-C7: Partial interbody fusion, potentially congenital. No canal stenosis or foraminal stenosis. C7-T1: No central canal stenosis. There is a right foraminal disc protrusion with possible osteophyte as well, with marked foraminal narrowing and marked impingement on the right C8 nerve root in the right foramen. Reference right foraminal oblique image 8 of series 8. IMPRESSION: 1. There is diffuse cervical spondylitic change. There is multilevel facet arthropathy and prominent uncovertebral joint osteophytes. 2. There is no central canal stenosis. 3. At C7-T1, there is a right foraminal disc protrusion with possible osteophyte resulting in marked impingement on the right C8 nerve root in the right foramen. 4. In this patient with right upper extremity radicular symptoms, there is also moderate to severe right foraminal narrowing at C3-C4, severe right foraminal narrowing at C4-C5, as well as marked right foraminal narrowing at C7-T1 as described above. 5. Left foraminal narrowing is severe at C5-C6. Dictated by: Riley Hernandez M.D. on 10/08/2024 at 8:59 Approved by: Riley Hernandez M.D. on 10/08/2024 at 9:13
== END ==
LOC: MRI 19:20
PROVIDERS: Family Provider Family Medicine; PCP Family Medicine; Referring Provider Family Medicine; Visit Provider Family Medicine
DX: M48.02 Spinal stenosis, cervical region (principal); M47.22 Other spondylosis with radiculopathy, cervical region; M50.13 Cervical disc disorder with radiculopathy, cervicothoracic region
CPT/HCPCS: 72141; 72146

== ENCOUNTER 2024-10-17 16:15 | Outpatient (RCR) | payer OTHER, SELFPAY ==
--- NOTE | 2024-08-05 15:59 | PT.OIE ---
Current Diagnoses Lateral epicondylitis, right elbow (08/05/24) Strain of other muscles, fascia and tendons at shoulder and upper arm level, right arm, subsequent encounter (08/05/24) Past Medical History (Last Updated 07/15/21 @ 16:13 by Maria Del Carmen Chavez RN) Allergic rhinitis Eczema Microcytic anemia Rotator cuff syndrome of left shoulder Scoliosis Past Surgical History (Last Updated 07/15/21 @ 16:16 by Maria Del Carmen Chavez RN) History of mandibular surgery History of tonsillectomy S/P rotator cuff repair Visit Care Team Role Provider Type Ana Srivastava MD Attending Provider Physician Family Provider Primary Care Provider Referring Provider Specialty: [facility] Practice Address: [address] [place] [place] [address], [facility] Email: [email or web address] [facility] Initial Evaluation PT-OP-A Visit Information Start: 08/05/24 15:58 Freq: Status: Active Protocol: Document 08/05/24 15:15 DCW (Rec: 08/05/24 16:00 DCW [id number]) Out-Patient Physical Therapy Visit Information Visit Information Visit Type Initial Evaluation Visit Start Time 15:15 Visit Stop Time 15:45 Visit Number 1 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 Pt reports that in mid-June, she was driving and noticed a pain in her forearm. Pain went away, the next day, she noticed the tingling, which has been present ever since. Notes she has not noticed any weakness, she is not dropping anything, it just feels weird. Has an EMG scheduled on 08/08/24 to her determine cause of tingling. Doesn't limit her function, just hoping to get it stopped before anything gets worse. PT-OP-C Subjective Start: 08/05/24 15:58 Freq: Status: Active Protocol: Document 08/05/24 15:15 DCW (Rec: 08/05/24 17:02 DCW [id number]) OP-PT Subjective Patient Comments Patient Comments It feels weird all the time. Sometimes it's worse with different positioning, sometimes it's numb, sometime' s it's tingly, but it's always just weird. Patient Reported Progress Improving Patient Questionnaires Quick Dash- Upper Extremity Quick Dash UE Score 13.64% Quick Dash UE Impairment 1 to 19% Impaired (Score 1-19) PT-OP-F Manual Assessment Start: 08/05/24 15:58 Freq: Status: Active Protocol: Document 08/05/24 15:15 DCW (Rec: 08/05/24 17:02 DCW [id number]) Manual Assessments Soft Tissue Assessment Soft Tissue Mobility Assessment Moderate tone along right upper trap and scalenes PT-OP-L Special Tests Start: 08/05/24 15:58 Freq: Status: Active Protocol: Document 08/05/24 15:15 DCW (Rec: 08/05/24 17:02 DCW [id number]) Special Tests Cervical Spine Special Tests Passive Neck Flexion Test Results Negative Spurling's Test Test Results Negative Slump Test Results Negative Foraminal Compression Test Results Negative Elbow Special Tests Medial Epicondylitis Test Results Negative Lateral Epicondylitis Flexed Test Results Negative Wrist/Hand Special Tests Tinel's Sign Test Results Negative Reverse Phalen's Test Test Results Negative Phalen's Test Test Results Negative PT-OP-M Strength Start: 08/05/24 15:58 Freq: Status: Active Protocol: Document 08/05/24 15:15 DCW (Rec: 08/05/24 17:02 DCW [id number]) Hand Parachute Harness Rigger/Pinch Strength Hand Dominance Hand Dominance Right Hand Strength Right Parachute Harness Rigger (lbs) 75 Comments Three-trial average (80, 75, 70) Left Parachute Harness Rigger (lbs) 75 Comments Three-trial average (75, 75, 75) PT-OP-Q Treatments Start: 08/05/24 15:58 Freq: Status: Active Protocol: Document 08/05/24 15:15 DCW (Rec: 08/05/24 16:00 DCW [id number]) Therapeutic Exercises Sitting Exercises Scalene Sitting Exercise Name Posterior scalene stretch Side right Upper Trap Sitting Exercise Name UT stretch Side right PT-OP-T Assessment and Plan Start: 08/05/24 15:58 Freq: Status: Active Protocol: Document 08/05/24 15:15 DCW (Rec: 08/06/24 10:50 DCW [id number]) Physical Therapy Assessment Rehab Potential Rehabilitation Potential Good Evaluation Complexity Number of Personal Factors/Comorbidities 1-2 Number of Body Systems Impaired 4 or More Clinical Presentation at Evaluation Stable Impairments Impairments Pain,Sensation,Soft Tissue Mobility,Tone Goals Two Impairment Pt reports constant weird sensory changes in her right arm 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 Phalen's, Reverse Phalen's, and Tinel's sign all negative. Unable to replicate increased sensory changes in pt's right 4th and 5th fingers . Pt does continue to have weird feeling in fingers, but not any worse with testing. Cervical testing also unremarkable. Parachute Harness Rigger strength R= L over a three-trial average. No limitations in finger or wrist strength and mobility. Pt does exhibit some increased tone in right cervical and shoulder, which may be resulting in some nerve impingement, although this will be better known with her upcoming nerve conduction study on 08/07/24. Provided some upper trap and scalene stretching, pt may benefit from further skilled therapy focusing on flexibility and tone management. Physical Therapy Plan Frequency and Duration Frequency of Treatment 1-2x/week Plan of Care Start Date 08/05/24 Plan of Care End Date 10/05/24 Therapeutic Interventions Therapeutic Interventions Home Exercise Program,Joint Mobilizations,Manual Therapy, Neuromuscular Re-education, Patient/Caregiver Education, Self-Care/Home Management,Soft Tissue Mobilization,Taping, Therapeutic Activities, Therapeutic Exercises Next Visit Focus/Plan Next Note Type Treatment Note Next Visit Plan Stretching, nerve glides, STM
--- NOTE | 2024-08-05 16:00 | PT.OPPOC ---
Physical, Occupational & Speech Therapy At [facility] Current Diagnoses Lateral epicondylitis, right elbow (08/05/24) Strain of other muscles, fascia and tendons at shoulder and upper arm level, right arm, subsequent encounter (08/05/24) Visit Care Team Role Provider Type Ana Srivastava MD Attending Provider Physician Family Provider Primary Care Provider Referring Provider Specialty: [facility] Practice Address: [address] [place] [address], [facility] [place], [place], [facility] Email: [email or web address] Plan Of Care PT-OP-B Current Condition Start: 08/05/24 15:58 Freq: Status: Active Protocol: Document 08/05/24 15:15 DCW (Rec: 08/06/24 10:50 DCW [id number]) Current Condition History of Current Condition Onset Date 1.5 month history Current Complaints Numbness/tingling in right 4th and 5th fingers History of Current Condition Pt is a 53 year old female presenting with a 1.5 month history of numbness and tingling in her right 4th and 5th fingers. Pt reports that in mid-June, she was driving and noticed a pain in her forearm. Pain went away, the next day, she noticed the tingling, which has been present ever since. Notes she has not noticed any weakness, she is not dropping anything, it just feels weird. Has an EMG scheduled on 08/08/24 to her determine cause of tingling. Doesn't limit her function, just hoping to get it stopped before anything gets worse. PT-OP-T Assessment and Plan Start: 08/05/24 15:58 Freq: Status: Active Protocol: Document 08/05/24 15:15 DCW (Rec: 08/06/24 10:50 DCW [id number]) Physical Therapy Assessment Rehab Potential Rehabilitation Potential Good Evaluation Complexity Number of Personal Factors/Comorbidities 1-2 Number of Body Systems Impaired 4 or More Clinical Presentation at Evaluation Stable Impairments Impairments Pain,Sensation,Soft Tissue Mobility,Tone Goals Two Impairment Pt reports constant weird sensory changes in her right arm Longterm Goal (LTG) Pt to report sensation of tingling in numbness in left arm <50% of the time in order to exhibit decreased pressure on nerve One Impairment Pt does not have an appropriate home exercise program Short Term Goal (STG) Pt to be independent and compliant with an appropriate HEP STG Duration 09/05/24 Assessment Summary Assessment Pt testing largely negative today. Phalen's, Reverse Phalen's, and Tinel's sign all negative. Unable to replicate increased sensory changes in pt's right 4th and 5th fingers . Pt does continue to have weird feeling in fingers, but not any worse with testing. Cervical testing also unremarkable. 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 No limitations in finger or wrist strength and mobility. Pt does exhibit some increased tone in right cervical and shoulder, which may be resulting in some nerve impingement, although this will be better known with her upcoming nerve conduction study on 08/07/24. Provided some upper trap and scalene stretching, pt may benefit from further skilled therapy focusing on flexibility and tone management. Physical Therapy Plan Frequency and Duration Frequency of Treatment 1-2x/week Plan of Care Start Date 08/05/24 Plan of Care End Date 10/05/24 Therapeutic Interventions Therapeutic Interventions Home Exercise Program,Joint Mobilizations,Manual Therapy, Neuromuscular Re-education, Patient/Caregiver Education, Self-Care/Home Management,Soft Tissue Mobilization,Taping, Therapeutic Activities, Therapeutic Exercises Next Visit Focus/Plan Next Note Type Treatment Note Next Visit Plan Stretching, nerve glides, STM Plan of Care Dates Plan of Care Start Date 08/05/24 Plan of Care End Date 10/05/24 Electronically Signed by: Keagan Hunt, PT 08/06/24 [id number] If you are in agreement with this Plan of Care, please return a signed and dated copy. I have reviewed this Plan of Care and certify that the skilled therapy services above are required to meet the patient?s needs. Physician Signature Date Printed Name and Credentials Clinical Instructor Signature Printed Name and Credentials
--- NOTE | 2024-08-06 10:50 | PT.OIE ---
Current Diagnoses Lateral epicondylitis, right elbow (08/05/24) Strain of other muscles, fascia and tendons at shoulder and upper arm level, right arm, subsequent encounter (08/05/24) Past Medical History (Last Updated 07/15/21 @ 16:13 by Maria Del Carmen Chavez RN) Allergic rhinitis Eczema Microcytic anemia Rotator cuff syndrome of left shoulder Scoliosis Past Surgical History (Last Updated 07/15/21 @ 16:16 by Maria Del Carmen Chavez RN) History of mandibular surgery History of tonsillectomy S/P rotator cuff repair Visit Care Team Role Provider Type Ana Srivastava MD Attending Provider Physician Family Provider Primary Care Provider Referring Provider Specialty: [facility] Practice Address: [address] [place] [address], [facility] Email: [email or web address] Physical Therapy Initial Evaluation PT-OP-A Visit Information Start: 08/05/24 15:58 Freq: Status: Active Protocol: Document 08/05/24 15:15 DCW (Rec: 08/05/24 16:00 DCW [id number]) Out-Patient Physical Therapy Visit Information Visit Information Visit Type Initial Evaluation Visit Start Time 15:15 Visit Stop Time 15:45 Visit Number 1 Number of BULK TANK DRIVER Visits 0 Evaluation Information Evaluation Date 08/05/24 PT-OP-B Current Condition Start: 08/05/24 15:58 Freq: Status: Active Protocol: Document 08/05/24 15:15 DCW (Rec: 08/06/24 10:50 DCW [id number]) Current Condition History of Current Condition Onset Date 1.5 month history Current Complaints Numbness/tingling in right 4th and 5th fingers History of Current Condition Pt is a 53 year old female presenting with a 1.5 month history of numbness and tingling in her right 4th and 5th fingers. Pt reports that in mid-June, she was driving and noticed a pain in her forearm. Pain went away, the next day, she noticed the tingling, which has been present ever since. Notes she has not noticed any weakness, she is not dropping anything, it just feels weird. Has an EMG scheduled on 08/08/24 to her determine cause of tingling. Doesn't limit her function, just hoping to get it stopped before anything gets worse. PT-OP-C Subjective Start: 08/05/24 15:58 Freq: Status: Active Protocol: Document 08/05/24 15:15 DCW (Rec: 08/05/24 17:02 DCW [id number]) OP-PT Subjective Patient Comments Patient Comments It feels weird all the time. Sometimes it's worse with different positioning, sometimes it's numb, sometime' s it's tingly, but it's always just weird. Patient Reported Progress Improving Patient Questionnaires Quick Dash- Upper Extremity Quick Dash UE Score 13.64% Quick Dash UE Impairment 1 to 19% Impaired (Score 1-19) PT-OP-F Manual Assessment Start: 08/05/24 15:58 Freq: Status: Active Protocol: Document 08/05/24 15:15 DCW (Rec: 08/05/24 17:02 DCW [id number]) Manual Assessments Soft Tissue Assessment Soft Tissue Mobility Assessment Moderate tone along right upper trap and scalenes PT-OP-L Special Tests Start: 08/05/24 15:58 Freq: Status: Active Protocol: Document 08/05/24 15:15 DCW (Rec: 08/05/24 17:02 DCW [id number]) Special Tests Cervical Spine Special Tests Passive Neck Flexion Test Results Negative Spurling's Test Test Results Negative Slump Test Results Negative Foraminal Compression Test Results Negative Elbow Special Tests Medial Epicondylitis Test Results Negative Lateral Epicondylitis Flexed Test Results Negative Wrist/Hand Special Tests Tinel's Sign Test Results Negative Reverse Phalen's Test Test Results Negative Phalen's Test Test Results Negative PT-OP-M Strength Start: 08/05/24 15:58 Freq: Status: Active Protocol: Document 08/05/24 15:15 DCW (Rec: 08/05/24 17:02 DCW [id number]) Hand J2Ee Application Developer/Pinch Strength Hand Dominance Hand Dominance Right Hand Strength Right J2Ee Application Developer (lbs) 75 Comments Three-trial average (80, 75, 70) Left J2Ee Application Developer (lbs) 75 Comments Three-trial average (75, 75, 75) PT-OP-Q Treatments Start: 08/05/24 15:58 Freq: Status: Active Protocol: Document 08/05/24 15:15 DCW (Rec: 08/05/24 16:00 DCW [id number]) Therapeutic Exercises Sitting Exercises Scalene Sitting Exercise Name Posterior scalene stretch Side right Upper Trap Sitting Exercise Name UT stretch Side right PT-OP-T Assessment and Plan Start: 08/05/24 15:58 Freq: Status: Active Protocol: Document 08/05/24 15:15 DCW (Rec: 08/06/24 10:50 DCW [id number]) Physical Therapy Assessment Rehab Potential Rehabilitation Potential Good Evaluation Complexity Number of Personal Factors/Comorbidities 1-2 Number of Body Systems Impaired 4 or More Clinical Presentation at Evaluation Stable Impairments Impairments Pain,Sensation,Soft Tissue Mobility,Tone Goals Two Impairment Pt reports constant weird sensory changes in her right arm Nougat Cutter Machine Goal (LTG) Pt to report sensation of tingling in numbness in left arm <50% of the time in order to exhibit decreased pressure on nerve One Impairment Pt does not have an appropriate home exercise program Short Term Goal (STG) Pt to be independent and compliant with an appropriate HEP STG Duration 09/05/24 Assessment Summary Assessment Pt testing largely negative today. Phalen's, Reverse Phalen's, and Tinel's sign all negative. Unable to replicate increased sensory changes in pt's right 4th and 5th fingers . Pt does continue to have weird feeling in fingers, but not any worse with testing. Cervical testing also unremarkable. J2Ee Application Developer strength R= L over a threre-trial average. No limitations in finger or wrist strength and mobility. Pt does exhibit some increased tone in right cervical and shoulder, which may be resulting in some nerve impingement, although this will be better known with her upcoming nerve conduction study on 08/07/24. Provided some upper trap and scalene stretching, pt may benefit from further skilled therapy focusing on flexibility and tone management. Physical Therapy Plan Frequency and Duration Frequency of Treatment 1-2x/week Plan of Care Start Date 08/05/24 Plan of Care End Date 10/05/24 Therapeutic Interventions Therapeutic Interventions Home Exercise Program,Joint Mobilizations,Manual Therapy, Neuromuscular Re-education, Patient/Caregiver Education, Self-Care/Home Management,Soft Tissue Mobilization,Taping, Therapeutic Activities, Therapeutic Exercises Next Visit Focus/Plan Next Note Type Treatment Note Next Visit Plan Stretching, nerve glides, STM
--- NOTE | 2024-08-08 17:37 | PT.OTN ---
Current Diagnoses Lateral epicondylitis, right elbow (08/08/24) Strain of other muscles, fascia and tendons at shoulder and upper arm level, right arm, subsequent encounter (08/08/24) Physical Therapy Treatment Note PT-OP-A Visit Information Start: 08/05/24 15:58 Freq: Status: Active Protocol: Document 08/08/24 16:50 DCW (Rec: 08/08/24 17:32 DCW [id number]) Out-Patient Physical Therapy Visit Information Visit Information Visit Type Treatment Note Visit Start Time 16:50 Visit Stop Time 17:35 Visit Number 2 Number of SALES OPERATIONS COORDINATOR Visits 0 Evaluation Information Evaluation Date 08/05/24 PT-OP-B Current Condition Start: 08/05/24 15:58 Freq: Status: Active Protocol: Document 08/05/24 15:15 DCW (Rec: 08/06/24 10:50 DCW [id number]) Current Condition History of Current Condition Onset Date 1.5 month history Current Complaints Numbness/tingling in right 4th and 5th fingers History of Current Condition Pt is a 53 year old female presenting with a 1.5 month history of numbness and tingling in her right 4th and 5th fingers. Pt reports that in mid-June, she was driving and noticed a pain in her forearm. Pain went away, the next day, she noticed the tingling, which has been present ever since. Notes she has not noticed any weakness, she is not dropping anything, it just feels weird. Has an EMG scheduled on 08/08/24 to her determine cause of tingling. Doesn't limit her function, just hoping to get it stopped before anything gets worse. PT-OP-C Subjective Start: 08/05/24 15:58 Freq: Status: Active Protocol: Document 08/08/24 16:50 DCW (Rec: 08/08/24 17:32 DCW [id number]) OP-PT Subjective Patient Comments Patient Comments Pt had EMG today, testing was unremarkable. Thinks it may have just been a short-term sprain that irritated a nerve, seems to be getting better with time. PT-OP-F Manual Assessment Start: 08/05/24 15:58 Freq: Status: Active Protocol: Document 08/05/24 15:15 DCW (Rec: 08/05/24 17:02 DCW [id number]) Manual Assessments Soft Tissue Assessment Soft Tissue Mobility Assessment Moderate tone along right upper trap and scalenes PT-OP-L Special Tests Start: 08/05/24 15:58 Freq: Status: Active Protocol: Document 08/05/24 15:15 DCW (Rec: 08/05/24 17:02 [facility] [id number]) Special Tests Cervical Spine Special Tests Passive Neck Flexion Test Results Negative Spurling's Test Test Results Negative Slump Test Results Negative Foraminal Compression Test Results Negative Elbow Special Tests Medial Epicondylitis Test Results Negative Lateral Epicondylitis Flexed Test Results Negative Wrist/Hand Special Tests Tinel's Sign Test Results Negative Reverse Phalen's Test Test Results Negative Phalen's Test Test Results Negative PT-OP-M Strength Start: 08/05/24 15:58 Freq: Status: Active Protocol: Document 08/05/24 15:15 DCW (Rec: 08/05/24 17:02 MTW [id number]) Hand Guest Service Host/Pinch Strength Hand Dominance Hand Dominance Right Hand Strength Right Guest Service Host (lbs) 75 Comments Three-trial average (80, 75, 70) Left Guest Service Host (lbs) 75 Comments Three-trial average (75, 75, 75) PT-OP-Q Treatments Start: 08/05/24 15:58 Freq: Status: Active Protocol: Document 08/08/24 16:50 DCW (Rec: 08/08/24 17:32 [facility] [id number]) Manual Therapy Treatment Consent Patient gave verbal consent for manual Yes treatment Soft Tissue Mobilization Right shoulder Body Location UT, Scalenes, Pec Mobilization Type Strumming,Sustained Pressure, Trigger Point Release Body Position Supine PT-OP-T Assessment and Plan Start: 08/05/24 15:58 Freq: Status: Active Protocol: Document 08/08/24 16:50 DCW (Rec: 08/08/24 17:32 [facility] [id number]) Physical Therapy Assessment Impairments Impairments Pain,Sensation,Soft Tissue Mobility,Tone Goals Two Impairment Pt reports constant weird sensory changes in her right arm Patient Support Tech Goal (LTG) Pt to report sensation of tingling in numbness in left arm <50% of the time in order to exhibit decreased pressure on nerve One Impairment Pt does not have an appropriate home exercise program Short Term Goal (STG) Pt to be independent and compliant with an appropriate HEP STG Duration 09/05/24 Assessment Summary Assessment Pt presenting today following unremarkable EMG earlier today , just coming from a massage. Pt overall feeling like symptoms have diminished greatly since they first started. Therapist and patient agree that pt is largely doing well enough that, at her current rate, will benefit from from posture changes and sleeping positioning than skilled therapy, however would like to not yet discharge just in case symptoms return. Will expect pt to cancel upcoming PT appoint if symptoms remain minimal, and will discharge if there are no follow-ups scheduled. Physical Therapy Plan Frequency and Duration Frequency of Treatment 1-2x/week Plan of Care Start Date 08/05/24 Plan of Care End Date 10/05/24 Therapeutic Interventions Therapeutic Interventions Home Exercise Program,Joint Mobilizations,Manual Therapy, Neuromuscular Re-education, Patient/Caregiver Education, Self-Care/Home Management,Soft Tissue Mobilization,Taping, Therapeutic Activities, Therapeutic Exercises Next Visit Focus/Plan Next Note Type Treatment Note Next Visit Plan Stretching, nerve glides, STM
--- NOTE | 2024-09-06 14:32 | PT.OTN ---
Current Diagnoses Lateral epicondylitis, right elbow (09/06/24) Strain of other muscles, fascia and tendons at shoulder and upper arm level, right arm, subsequent encounter (09/06/24) Physical Therapy Treatment Note PT-OP-A Visit Information Start: 08/05/24 15:58 Freq: Status: Active Protocol: Document 09/06/24 13:45 DCW (Rec: 09/06/24 14:32 DCW [id number]) Out-Patient Physical Therapy Visit Information Visit Information Visit Type Treatment Note Visit Start Time 13:45 Visit Stop Time 14:30 Visit Number 3 Number of JACKER Visits 0 Evaluation Information Evaluation Date 08/05/24 PT-OP-B Current Condition Start: 08/05/24 15:58 Freq: Status: Active Protocol: Document 08/05/24 15:15 DCW (Rec: 08/06/24 10:50 DCW [id number]) Current Condition History of Current Condition Onset Date 1.5 month history Current Complaints Numbness/tingling in right 4th and 5th fingers History of Current Condition Pt is a 53 year old female presenting with a 1.5 month history of numbness and tingling in her right 4th and 5th fingers. Pt reports that in mid-June, she was driving and noticed a pain in her forearm. Pain went away, the next day, she noticed the tingling, which has been present ever since. Notes she has not noticed any weakness, she is not dropping anything, it just feels weird. Has an EMG scheduled on 08/08/24 to her determine cause of tingling. Doesn't limit her function, just hoping to get it stopped before anything gets worse. PT-OP-C Subjective Start: 08/05/24 15:58 Freq: Status: Active Protocol: Document 09/06/24 13:45 DCW (Rec: 09/06/24 14:32 DCW [id number]) OP-PT Subjective Patient Comments Patient Comments On Sep 16, muscles got really angry, has a lot more tension and pulling in the neck and posterior arm, along with tingling in 4th and 5th fingers. PT-OP-F Manual Assessment Start: 08/05/24 15:58 Freq: Status: Active Protocol: Document 08/05/24 15:15 DCW (Rec: 08/05/24 17:02 DCW [id number]) Manual Assessments Soft Tissue Assessment Soft Tissue Mobility Assessment Moderate tone along right upper trap and scalenes PT-OP-L Special Tests Start: 08/05/24 15:58 Freq: Status: Active Protocol: Document 08/05/24 15:15 DCW (Rec: 08/05/24 17:02 PAW [id number]) Special Tests Cervical Spine Special Tests Passive Neck Flexion Test Results Negative Spurling's Test Test Results Negative Slump Test Results Negative Foraminal Compression Test Results Negative Elbow Special Tests Medial Epicondylitis Test Results Negative Lateral Epicondylitis Flexed Test Results Negative Wrist/Hand Special Tests Tinel's Sign Test Results Negative Reverse Phalen's Test Test Results Negative Phalen's Test Test Results Negative PT-OP-M Strength Start: 08/05/24 15:58 Freq: Status: Active Protocol: Document 08/05/24 15:15 DCW (Rec: 08/05/24 17:02 DCW [id number]) Hand Middleware Administrator/Pinch Strength Hand Dominance Hand Dominance Right Hand Strength Right Middleware Administrator (lbs) 75 Comments Three-trial average (80, 75, 70) Left Middleware Administrator (lbs) 75 Comments Three-trial average (75, 75, 75) PT-OP-Q Treatments Start: 08/05/24 15:58 Freq: Status: Active Protocol: Document 09/06/24 13:45 DCW (Rec: 09/06/24 14:32 [facility] [id number]) Manual Therapy Treatment Consent Patient gave verbal consent for manual Yes treatment Soft Tissue Mobilization Right shoulder Body Location UT, Scalenes, Pec Mobilization Type Strumming,Sustained Pressure, Trigger Point Release Body Position Supine Nerve Glides Ulnar Nerve R Ulnar Nerve Glides Body Position Sitting Comments Handout provided PT-OP-T Assessment and Plan Start: 08/05/24 15:58 Freq: Status: Active Protocol: Document 09/06/24 13:45 DCW (Rec: 09/06/24 14:32 [facility] [id number]) Physical Therapy Assessment Impairments Impairments Pain,Sensation,Soft Tissue Mobility,Tone Goals Two Impairment Pt reports constant weird sensory changes in her right arm Newspaper Columnist Goal (LTG) Pt to report sensation of tingling in numbness in left arm <50% of the time in order to exhibit decreased pressure on nerve One Impairment Pt does not have an appropriate home exercise program Short Term Goal (STG) Pt to be independent and compliant with an appropriate HEP STG Duration 09/05/24 Assessment Summary Assessment Pt presenting with worsened symptoms today, much more consistent now with Ulnar nerve impingement, tight/ pulling sensation in posterior upper arm and along elbow, down through forearm and into 4th and 5th fingers. Trial of ulnar nerve glides mildly irritating. Pt agreeable to try subdued versions to try to improve nerve mobility. Also agreeable to contact PCP for MRI request. Physical Therapy Plan Frequency and Duration Frequency of Treatment 1-2x/week Plan of Care Start Date 08/05/24 Plan of Care End Date 10/05/24 Therapeutic Interventions Therapeutic Interventions Home Exercise Program,Joint Mobilizations,Manual Therapy, Neuromuscular Re-education, Patient/Caregiver Education, Self-Care/Home Management,Soft Tissue Mobilization,Taping, Therapeutic Activities, Therapeutic Exercises Other Referrals/Consults Referrals/Consults Recommended Increased neuro symptoms, pt likely benefit from advanced imaging. Next Visit Focus/Plan Next Note Type Treatment Note Next Visit Plan Stretching, nerve glides, STM
--- NOTE | 2024-10-04 15:02 | PT.OTN ---
Current Diagnoses Lateral epicondylitis, right elbow (10/04/24) Strain of other muscles, fascia and tendons at shoulder and upper arm level, right arm, subsequent encounter (10/04/24) Physical Therapy Treatment Note PT-OP-A Visit Information Start: 08/05/24 15:58 Freq: Status: Active Protocol: Document 10/04/24 14:30 DCW (Rec: 10/04/24 15:02 DCW [id number]) Out-Patient Physical Therapy Visit Information Visit Information Visit Type Progress Note Visit Start Time 14:30 Visit Stop Time 14:55 Visit Number 4 Number of DIET TECH Visits 0 Evaluation Information Evaluation Date 08/05/24 PT-OP-B Current Condition Start: 08/05/24 15:58 Freq: Status: Active Protocol: Document 08/05/24 15:15 DCW (Rec: 08/06/24 10:50 DCW [id number]) Current Condition History of Current Condition Onset Date 1.5 month history Current Complaints Numbness/tingling in right 4th and 5th fingers History of Current Condition Pt is a 53 year old female presenting with a 1.5 month history of numbness and tingling in her right 4th and 5th fingers. Pt reports that in mid-June, she was driving and noticed a pain in her forearm. Pain went away, the next day, she noticed the tingling, which has been present ever since. Notes she has not noticed any weakness, she is not dropping anything, it just feels weird. Has an EMG scheduled on 08/08/24 to her determine cause of tingling. Doesn't limit her function, just hoping to get it stopped before anything gets worse. PT-OP-C Subjective Start: 08/05/24 15:58 Freq: Status: Active Protocol: Document 10/04/24 14:30 DCW (Rec: 10/04/24 14:36 DCW [id number]) OP-PT Subjective Patient Comments Patient Comments It's about the same, maybe worse. More numbness in the hand. More achiness too, but that might have been because of the yard work. PT-OP-F Manual Assessment Start: 08/05/24 15:58 Freq: Status: Active Protocol: Document 10/04/24 14:30 DCW (Rec: 10/04/24 14:58 DCW [id number]) Manual Assessments Soft Tissue Assessment Soft Tissue Mobility Assessment Moderate tone along right upper trap and scalenes PT-OP-L Special Tests Start: 08/05/24 15:58 Freq: Status: Active Protocol: Document 10/04/24 14:30 DCW (Rec: 10/04/24 14:58 DCW [id number]) Special Tests Cervical Spine Special Tests Traction Test Results Increased neural symptoms Passive Neck Flexion Test Results Positive R Spurling's Test Test Results Positive R Slump Test Results Positive R Foraminal Compression Test Results Positive R PT-OP-M Strength Start: 08/05/24 15:58 Freq: Status: Active Protocol: Document 10/04/24 14:30 DCW (Rec: 10/04/24 14:58 DCW [id number]) Hand Meteorology Instructor/Pinch Strength Hand Dominance Hand Dominance Right PT-OP-Q Treatments Start: 08/05/24 15:58 Freq: Status: Active Protocol: Document 09/06/24 13:45 DCW (Rec: 09/06/24 14:32 DCW [id number]) Manual Therapy Treatment Consent Patient gave verbal consent for manual Yes treatment Soft Tissue Mobilization Right shoulder Body Location UT, Scalenes, Pec Mobilization Type Strumming,Sustained Pressure, Trigger Point Release Body Position Supine Nerve Glides Ulnar Nerve R Ulnar Nerve Glides Body Position Sitting Comments Handout provided PT-OP-T Assessment and Plan Start: 08/05/24 15:58 Freq: Status: Active Protocol: Document 10/04/24 14:30 DCW (Rec: 10/04/24 15:02 DCW [id number]) Physical Therapy Assessment Impairments Impairments Pain,Sensation,Soft Tissue Mobility,Tone Goals Two Impairment Pt reports constant weird sensory changes in her right arm Retirement Assistant Goal (LTG) Pt to report sensation of tingling in numbness in left arm <50% of the time in order to exhibit decreased pressure on nerve LTG Duration 12/04/24 One Impairment Pt does not have an appropriate home exercise program Short Term Goal (STG) Pt to be independent and compliant with an appropriate HEP STG Duration 11/04/24 Assessment Summary Assessment Neuro symptoms significantly worse since initial evaluation , increased nerve irritation along entirety of upper extremity. Pt has MRI scheduled for next Monday, will hopefully help to plan for visits going forward. Physical Therapy Plan Frequency and Duration Frequency of Treatment 1-2x/week Plan of Care Start Date 10/04/24 Plan of Care End Date 12/04/24 Therapeutic Interventions Therapeutic Interventions Home Exercise Program,Joint Mobilizations,Manual Therapy, Neuromuscular Re-education, Patient/Caregiver Education, Self-Care/Home Management,Soft Tissue Mobilization,Taping, Therapeutic Activities, Therapeutic Exercises Next Visit Focus/Plan Next Note Type Treatment Note Next Visit Plan Stretching, nerve glides, STM
--- NOTE | 2024-10-04 15:02 | PT.OPPOC ---
Physical, Occupational & Speech Therapy At [facility] Current Diagnoses Lateral epicondylitis, right elbow (10/04/24) Strain of other muscles, fascia and tendons at shoulder and upper arm level, right arm, subsequent encounter (10/04/24) Visit Care Team Role Provider Type Ana Srivastava MD Attending Provider Physician Family Provider Primary Care Provider Referring Provider Specialty: [facility] Practice Address: [address] [place] [address], [facility] [place] [place], [facility] Email: [email or web address] Plan Of Care PT-OP-B Current Condition Start: 08/05/24 15:58 Freq: Status: Active Protocol: Document 08/05/24 15:15 DCW (Rec: 08/06/24 10:50 DCW [id number]) Current Condition History of Current Condition Onset Date 1.5 month history Current Complaints Numbness/tingling in right 4th and 5th fingers History of Current Condition Pt is a 53 year old female presenting with a 1.5 month history of numbness and tingling in her right 4th and 5th fingers. Pt reports that in mid-June, she was driving and noticed a pain in her forearm. Pain went away, the next day, she noticed the tingling, which has been present ever since. Notes she has not noticed any weakness, she is not dropping anything, it just feels weird. Has an EMG scheduled on 08/08/24 to her determine cause of tingling. Doesn't limit her function, just hoping to get it stopped before anything gets worse. PT-OP-T Assessment and Plan Start: 08/05/24 15:58 Freq: Status: Active Protocol: Document 10/04/24 14:30 DCW (Rec: 10/04/24 15:02 DCW [id number]) Physical Therapy Assessment Impairments Impairments Pain,Sensation,Soft Tissue Mobility,Tone Goals Two Impairment Pt reports constant weird sensory changes in her right arm Penitentiary Goal (LTG) Pt to report sensation of tingling in numbness in left arm <50% of the time in order to exhibit decreased pressure on nerve LTG Duration 12/04/24 One Impairment Pt does not have an appropriate home exercise program Short Term Goal (STG) Pt to be independent and compliant with an appropriate HEP STG Duration 11/04/24 Assessment Summary Assessment Neuro symptoms significantly worse since initial evaluation , increased nerve irritation along entirety of upper extremity. Pt has MRI scheduled for next Monday, will hopefully help to plan for visits going forward. Physical Therapy Plan Frequency and Duration Frequency of Treatment 1-2x/week Plan of Care Start Date 10/04/24 Plan of Care End Date 12/04/24 Therapeutic Interventions Therapeutic Interventions Home Exercise Program,Joint Mobilizations,Manual Therapy, Neuromuscular Re-education, Patient/Caregiver Education, Self-Care/Home Management,Soft Tissue Mobilization,Taping, Therapeutic Activities, Therapeutic Exercises Next Visit Focus/Plan Next Note Type Treatment Note Next Visit Plan Stretching, nerve glides, STM Plan of Care Dates Plan of Care Start Date 10/04/24 Plan of Care End Date 12/04/24 Electronically Signed by: Keagan Hunt, PT 10/04/24 [id number] If you are in agreement with this Plan of Care, please return a signed and dated copy. I have reviewed this Plan of Care and certify that the skilled therapy services above are required to meet the patient?s needs. Physician Signature Date Printed Name and Credentials Clinical Instructor Signature Printed Name and Credentials
--- NOTE | 2024-10-17 16:59 | PT.OTN ---
Current Diagnoses Lateral epicondylitis, right elbow (10/17/24) Strain of other muscles, fascia and tendons at shoulder and upper arm level, right arm, subsequent encounter (10/17/24) Physical Therapy Treatment Note PT-OP-A Visit Information Start: 08/05/24 15:58 Freq: Status: Active Protocol: Document 10/17/24 16:18 DCW (Rec: 10/17/24 16:59 DCW [id number]) Out-Patient Physical Therapy Visit Information Visit Information Visit Type Treatment Note Visit Start Time 16:18 Visit Stop Time 16:50 Visit Number 5 Number of MOLD BUNCH TRIMMER Visits 0 Evaluation Information Evaluation Date 08/05/24 PT-OP-B Current Condition Start: 08/05/24 15:58 Freq: Status: Active Protocol: Document 08/05/24 15:15 DCW (Rec: 08/06/24 10:50 DCW [id number]) Current Condition History of Current Condition Onset Date 1.5 month history Current Complaints Numbness/tingling in right 4th and 5th fingers History of Current Condition Pt is a 53 year old female presenting with a 1.5 month history of numbness and tingling in her right 4th and 5th fingers. Pt reports that in mid-June, she was driving and noticed a pain in her forearm. Pain went away, the next day, she noticed the tingling, which has been present ever since. Notes she has not noticed any weakness, she is not dropping anything, it just feels weird. Has an EMG scheduled on 08/08/24 to her determine cause of tingling. Doesn't limit her function, just hoping to get it stopped before anything gets worse. PT-OP-C Subjective Start: 08/05/24 15:58 Freq: Status: Active Protocol: Document 10/17/24 16:18 DCW (Rec: 10/17/24 16:59 DCW [id number]) OP-PT Subjective Patient Comments Patient Comments Pt is starting today on Prednisone to try to help decrease inflammation, and has a referral out to an Ortho surgeon ([facility] in [place]) to get their opinion. MRI shows significant degenerative changes. Cervical MRI: IMPRESSION: 1. There is diffuse cervical spondylitic change. There is multilevel facet arthropathy and prominent uncovertebral joint osteophytes. 2. There is no central canal stenosis. 3. At C7-T1, there is a right foraminal disc protrusion with possible osteophyte resulting in marked impingement on the right C8 nerve root in the right foramen. 4. In this patient with right upper extremity radicular symptoms, there is also moderate to severe right foraminal narrowing at C3-C4, severe right foraminal narrowing at C4-C5, as well as marked right foraminal narrowing at C7-T1 as described above. 5. Left foraminal narrowing is severe at C5-C6. per Riley Hernandez M.D. on 10/08/2024 PT-OP-F Manual Assessment Start: 08/05/24 15:58 Freq: Status: Active Protocol: Document 10/04/24 14:30 DCW (Rec: 10/04/24 14:58 DCW [id number]) Manual Assessments Soft Tissue Assessment Soft Tissue Mobility Assessment Moderate tone along right upper trap and scalenes PT-OP-L Special Tests Start: 08/05/24 15:58 Freq: Status: Active Protocol: Document 10/04/24 14:30 DCW (Rec: 10/04/24 14:58 DCW [id number]) Special Tests Cervical Spine Special Tests Traction Test Results Increased neural symptoms Passive Neck Flexion Test Results Positive R Spurling's Test Test Results Positive R Slump Test Results Positive R Foraminal Compression Test Results Positive R PT-OP-M Strength Start: 08/05/24 15:58 Freq: Status: Active Protocol: Document 10/04/24 14:30 DCW (Rec: 10/04/24 14:58 DCW [id number]) Hand Adult Care Provider/Pinch Strength Hand Dominance Hand Dominance Right PT-OP-Q Treatments Start: 08/05/24 15:58 Freq: Status: Active Protocol: Document 10/17/24 16:18 DCW (Rec: 10/17/24 16:59 DCW [id number]) Manual Therapy Treatment Soft Tissue Mobilization Right shoulder Body Location UT, Scalenes, Pec Mobilization Type Strumming,Sustained Pressure, Trigger Point Release Body Position Sitting PT-OP-T Assessment and Plan Start: 08/05/24 15:58 Freq: Status: Active Protocol: Document 10/17/24 16:18 DCW (Rec: 10/17/24 16:59 DCW [id number]) Physical Therapy Assessment Impairments Impairments Pain,Sensation,Soft Tissue Mobility,Tone Goals Two Impairment Pt reports constant weird sensory changes in her right arm Fpc Goal (LTG) Pt to report sensation of tingling in numbness in left arm <50% of the time in order to exhibit decreased pressure on nerve LTG Duration 12/04/24 One Impairment Pt does not have an appropriate home exercise program Short Term Goal (STG) Pt to be independent and compliant with an appropriate HEP STG Duration 11/04/24 Assessment Summary Assessment Pt continues to exhibit increased neuro symptoms, consistent with findings of MRI. Pt working to get seen by ortho. Will likely hold PT until pt is seen by ortho in order to determine next steps. Pt in agreement with this plan. Physical Therapy Plan Frequency and Duration Frequency of Treatment 1-2x/week Plan of Care Start Date 10/04/24 Plan of Care End Date 12/04/24 Therapeutic Interventions Therapeutic Interventions Home Exercise Program,Joint Mobilizations,Manual Therapy, Neuromuscular Re-education, Patient/Caregiver Education, Self-Care/Home Management,Soft Tissue Mobilization,Taping, Therapeutic Activities, Therapeutic Exercises Next Visit Focus/Plan Next Note Type Treatment Note Next Visit Plan Stretching, nerve glides, STM
--- NOTE | 2025-03-31 12:53 | PT.OPDS ---
Current Diagnoses Lateral epicondylitis, right elbow (10/17/24) Strain of other muscles, fascia and tendons at shoulder and upper arm level, right arm, subsequent encounter (10/17/24) Visit Care Team Role Provider Type Ana Srivastava MD Attending Provider Physician Family Provider Primary Care Provider Referring Provider Specialty: Family Practice Address: [address] [place] [address], [id number] Email: [email or web address] Visit Number Visit Number 5 Discharge Summary PT-OP-A Visit Information Start: 08/05/24 15:58 Freq: Status: Active Protocol: Document 10/17/24 16:18 DCW (Rec: 10/17/24 16:59 DCW [id number]) Out-Patient Physical Therapy Visit Information Visit Information Visit Type Treatment Note Visit Start Time 16:18 Visit Stop Time 16:50 Visit Number 5 Number of RAPID OUTSOLE STITCHER Visits 0 Evaluation Information Evaluation Date 08/05/24 PT-OP-B Current Condition Start: 08/05/24 15:58 Freq: Status: Active Protocol: Document 08/05/24 15:15 DCW (Rec: 08/06/24 10:50 DCW [id number]) Current Condition History of Current Condition Onset Date 1.5 month history Current Complaints Numbness/tingling in right 4th and 5th fingers History of Current Pt is a 53 year old female presenting with a 1.5 month Condition history of numbness and tingling in her right 4th and 5th fingers. Pt reports that in mid-June, she was driving and noticed a pain in her forearm. Pain went away, the next day, she noticed the tingling, which has been present ever since. Notes she has not noticed any weakness, she is not dropping anything, it just feels weird. Has an EMG scheduled on 08/08/24 to her determine cause of tingling. Doesn't limit her function , just hoping to get it stopped before anything gets worse. PT-OP-C Subjective Start: 08/05/24 15:58 Freq: Status: Active Protocol: Document 10/17/24 16:18 DCW (Rec: 10/17/24 16:59 DCW [id number]) OP-PT Subjective Patient Comments Patient Comments Pt is starting today on Prednisone to try to help decrease inflammation, and has a referral out to an Ortho surgeon ([facility] in [place]) to get their opinion. MRI shows significant degenerative changes. Cervical MRI: IMPRESSION: 1. There is diffuse cervical spondylitic change. There is multilevel facet arthropathy and prominent uncovertebral joint osteophytes. 2. There is no central canal stenosis. 3. At C7-T1, there is a right foraminal disc protrusion with possible osteophyte resulting in marked impingement on the right C8 nerve root in the right foramen. 4. In this patient with right upper extremity radicular symptoms, there is also moderate to severe right foraminal narrowing at C3-C4, severe right foraminal narrowing at C4-C5, as well as marked right foraminal narrowing at C7-T1 as described above. 5. Left foraminal narrowing is severe at C5-C6. per Riley Hernandez M.D. on 10/08/2024 PT-OP-F Manual Assessment Start: 08/05/24 15:58 Freq: Status: Active Protocol: Document 10/04/24 14:30 DCW (Rec: 10/04/24 14:58 DCW [id number]) Manual Assessments Soft Tissue Assessment Soft Tissue Mobility Moderate tone along right upper trap and scalenes Assessment PT-OP-L Special Tests Start: 08/05/24 15:58 Freq: Status: Active Protocol: Document 10/04/24 14:30 DCW (Rec: 10/04/24 14:58 DCW [id number]) Special Tests Cervical Spine Special Tests Traction Test Results Increased neural symptoms Passive Neck Flexion Test Results Positive R Spurling's Test Test Results Positive R Slump Test Results Positive R Foraminal Compression Test Results Positive R PT-OP-M Strength Start: 08/05/24 15:58 Freq: Status: Active Protocol: Document 10/04/24 14:30 DCW (Rec: 10/04/24 14:58 DCW [id number]) Hand Airconditioning Engineer/Pinch Strength Hand Dominance Hand Dominance Right PT-OP-T Assessment and Plan Start: 08/05/24 15:58 Freq: Status: Active Protocol: Document 03/31/25 12:52 DCW (Rec: 03/31/25 12:53 DCW [id number]) Physical Therapy Assessment Assessment Summary Assessment Pt has not been seen in more than five months. POC has . Pt will require a new referral in order to return in the future. Pt will be discharged from skilled PT at this time. Physical Therapy Plan Discharge Physical Therapy Discharge Reasons No Longer Attending PT
== END 2025-04-01 10:02 | disposition home or self-care (01) ==
LOC: PHYS 16:15
PROVIDERS: Family Provider Family Medicine; PCP Family Medicine; Referring Provider Family Medicine; Visit Provider Family Medicine
DX: M77.11 Lateral epicondylitis, right elbow (principal); S46.811D Strain of other muscles, fascia and tendons at shoulder and upper arm level, right arm, subsequent encounter
CPT/HCPCS: 97110; 97140; 97161

== ENCOUNTER → 2024-12-20 15:10 | Outpatient (CLI) | payer OTHER, SELFPAY ==
--- NOTE | 2024-12-20 15:14 | DI.RAD.S_ITS ---
PROCEDURE: XR CERVICAL SPINE 2V OR 3V INDICATIONS: Cervical radiculopathy TECHNIQUE: 2 view(s) of the cervical spine were acquired. COMPARISON: None. FINDINGS: Bones: No fractures or dislocations to the T2 level. Hardware status post C7- T1 anterior discectomy and fusion without evidence of complication. Anterolisthesis of C5 on C6 measures 3 mm. Multilevel bilateral facet hypertrophy. No suspicious bony lesions. Soft tissues: No prevertebral soft tissue swelling. IMPRESSION: Degenerative and postsurgical change without evidence of acute osseous abnormality or hardware complication. Dictated by: Neeraj Peters M.D. on 12/20/2024 at 22:03 Approved by: Neeraj Peters M.D. on 12/20/2024 at 22:30
== END ==
LOC: RAD 15:11
PROVIDERS: Family Provider Family Medicine; PCP Family Medicine; Referring Provider Neurological Surgery; Visit Provider Neurological Surgery
DX: M47.22 Other spondylosis with radiculopathy, cervical region (principal); M43.12 Spondylolisthesis, cervical region; Z98.1 Arthrodesis status
CPT/HCPCS: 72040

== ENCOUNTER → 2025-03-14 14:34 | Outpatient (CLI) | payer OTHER, SELFPAY ==
--- NOTE | 2025-03-14 14:37 | DI.RAD.S_ITS ---
PROCEDURE: XR CERVICAL SPINE 2V OR 3V INDICATIONS: NECK PAIN TECHNIQUE: 3 view(s) of the cervical spine were acquired. COMPARISON: [facility], CR, XR CERVICAL SPINE 2V OR 3V, 12/20/2024, 15:13. FINDINGS: Bones: There is stable appearance of ACDF at C7-T1. There is stable C5 anterolisthesis as well as partial fusion of C6 and C7. Stable degenerative disc disease in the C4-C6 region as well as bilateral facet arthropathy. No new focal osseous lesion seen. Soft tissues: No prevertebral soft tissue swelling. IMPRESSION: Stable postoperative and degenerative changes as well as spondylolisthesis, no new focal osseous lesion seen. Dictated by: Guy Lemus M.D. on 03/16/2025 at 14:35 Approved by: Guy Lemus M.D. on 03/16/2025 at 14:37
== END ==
PROVIDERS: Family Provider Family Medicine; PCP Family Medicine; Referring Provider Neurological Surgery; Visit Provider Neurological Surgery
DX: M50.321 Other cervical disc degeneration at C4-C5 level (principal); M47.812 Spondylosis without myelopathy or radiculopathy, cervical region; M43.12 Spondylolisthesis, cervical region; M43.22 Fusion of spine, cervical region
CPT/HCPCS: 72040